=== PATIENT | male | born 1960 | race Caucasian/White ===

== ENCOUNTER 2023-05-13 11:29 | Outpatient (OUT) | payer MEDICARE, SELFPAY ==
[2023-05-13 13:32] LABS: Estimated Average Glucose 151 mg/dL; Glycohemoglobin A1C 6.9 % (4.5-6.2)
== END 2023-05-13 11:30 | disposition home or self-care (01) ==
LOC: LAB 11:33
PROVIDERS: Visit Provider Nurse Practitioner Family
DX: M25.561 Pain in right knee (principal)
CPT/HCPCS: 36415; 83036

== ENCOUNTER 2023-07-07 09:40 | Emergency (ER) | payer MEDICARE, SELFPAY ==
[2023-07-07 09:46] VITALS: BP 179/94; PULSE 88; TEMP 36.8; O2SAT 97; BMI 29.5
--- OUTSIDE RECORDS SUMMARY | 2023-07-07 10:00 | XMS_ITS | CCD ---
Author Organization [facility] Care Team Providers Care Agriculture Laboratory Technician Name Role Phone RICKY RANGEL Unavailable Unavailable RANGEL, RICKY W Unavailable Unavailable Unlisted, Physician Unavailable Unavailable Genet Cramer Unavailable Unavailable Unlisted, Physician Unavailable Unavailable RANGEL, RICKY W Unavailable Unavailable Unlisted, Physician Unavailable Unavailable SUMIT, BECCA Unavailable Unavailable SUMIT, BECCA Unavailable Unavailable SUMIT, BECCA Unavailable Unavailable SUMIT, BECCA Unavailable Unavailable SUMIT, BECCA Unavailable Unavailable SUMIT, BECCA Unavailable Unavailable Radha Montgomery Primary Care Provider Radha Montgomery Primary Care Provider Might SLEEVE SEPARATOR - Radha JAMISON Primary Care Provider JILLIAN RUSSELL Attending Unavailable JILLIAN RUSSELL Admitting Unavailable Might SLEEVE SEPARATOR - Radha JAMISON Primary Care Provider ARDHA MONTGOMERY Referring Unavailable RADHA MONTGOMERY Primary Care Unavailable Might Radha BIRCH Unavailable JILLIAN RUSSELL Attending Unavailable JILLIAN RUSSELL Referring Unavailable DONY CROW Attending Unavailable Allergies Allergy Classification Reported Allergen(s) Allergy Type Date of Onset Reaction(s) Facility (1 source) No Known Medication Allergies; Translations: [No Known Medication Allergies] Propensity to adverse reactions to drug (disorder) [facility] Repository Medications Current Medications Medication Drug Class(es) Dates Sig (Normalized) Sig (Original) amLODIPine 10 mg / benazepril hydrochloride 40 mg oral capsule (8 sources) Dihydropyridine Calcium Channel Belia, Angiotensin Converting Enzyme Inhibitor Start: 04-18-2023 take 1 capsule by mouth in the morning amLODIPine-benaz epril (Lotrel) 10-40 MG capsule Take 1 capsule by mouth in the morning. 0 04/18/2023 Active Start: 04-24-2021 take 1 capsule by mo uth once daily amLODIPine-benazepril (LOTREL) 10-40 MG per capsule Indications: Essential hypertension Take 1 capsule by mouth daily 90 capsule 3 04/24/2021 Active Start: 10-16-2020 take 1 capsule by mo uth once daily amLODIPine-benazepril (LOTREL) 10-40 MG per capsule Indications: Essential hypertension Take 1 capsule by mouth daily 90 capsule 1 10/16/2020 Active Start: 10-27-2019 take 1 capsule by mo uth once daily amLODIPine-benazepril (LOTREL) 10-40 MG per capsule Indications: Essential hypertension Take 1 capsule by mouth daily 90 capsule 1 10/27/2019 Active Start: 04-20-2019 take 1 capsule by mo uth once daily amLODIPine-benazepril (LOTREL) 10-40 MG per capsule Indications: Essential hypertension Take 1 capsule by mouth daily 90 capsule 1 04/20/2019 Active Start: 10-15-2018 take 1 capsule by mo uth once daily amLODIPine-benazepril (LOTREL) 10-40 MG per capsule Indications: Essential hypertension Take 1 capsule by mouth daily 90 capsule 1 10/15/2018 Active aspirin 81 mg oral tablet (6 sources) Platelet Aggregation Inhibitor, Nonsteroidal Anti-inflammatory Drug take 1 tablet by mouth once daily aspirin 81 MG tablet Take 81 mg by mouth daily 0 Active atenolol 100 mg oral tablet (6 sources) beta-Adrenergic Belia Start: 04-24-19 take 1 tablet by mouth once daily atenolol (TENORMIN) 100 MG tablet Indications: Essential hypertension TAKE 1 TABLET BY MOUTH DAILY 90 tablet 3 04/24/2021 Active Start: 10-16-2020 take 1 tablet by zi th once daily atenolol (TENORMIN) 100 MG tablet Indications: Essential hypertension TAKE 1 TABLET BY MOUTH DAILY 90 tablet 1 10/16/2020 Active Start: 10-27-2019 take 1 tablet by zi th once daily atenolol (TENORMIN) 100 MG tablet Indications: Essential hypertension TAKE 1 TABLET BY MOUTH DAILY 90 tablet 1 10/27/2019 Active Start: 04-20-2019 take 1 tablet by zi th once daily atenolol (TENORMIN) 100 MG tablet Indications: Essential hypertension TAKE 1 TABLET BY MOUTH DAILY 90 tablet 1 04/20/2019 Active Start: 10-12-2018 take 1 tablet by zi th once daily atenolol (TENORMIN) 100 MG tablet Indications: Essential hypertension TAKE 1 TABLET BY MOUTH DAILY 90 tablet 1 10/12/2018 Active budesonide 0.032 mg/actuat metered dose nasal spray (1 source) Corticosteroid Start: 03-27-2020 take 1 spray(s) nasal route once daily budesonide (RINOCORT AQUA) 32 MCG/ACT nasal spray Indications: Chronic allergic rhinitis 1 spray by Each Nostril route daily 1 Bottle 5 03/27/2020 Active calcium chloride 0.0014 meq/ml / potassium chloride 0.004 meq/ml / sodium chloride 0.103 meq/ml / sodium lactate 0.028 meq/ml injectable solution (3 sources) Start: 04-03-2021 lactated ringers infusion dapagliflozin 5 mg oral tablet (4 sources) Sodium-Glucose Cotransporter 2 Inhibitor Start: 03-27-2020 take 1 tablet by mouth once daily in the morning dapagliflozin (FARXIGA) 5 MG tablet Indications: Type 2 diabetes mellitus with complication, without long-term current use of insulin (HCC) TAKE 1 TABLET BY MOUTH EVERY DAY IN THE MORNING 90 tablet 3 03/27/2020 Active Start: 04-12-2019 take 1 tablet by zi th once daily in the morning dapagliflozin (FARXIGA) 5 MG tablet Indications: Type 2 diabetes mellitus with complication, without long-term current use of insulin (HCC) TAKE 1 TABLET BY MOUTH EVERY DAY IN THE MORNING 90 tablet 3 04/12/2019 Active Start: 10-15-2018 take 1 tablet by zi th once daily in the morning dapagliflozin (FARXIGA) 5 MG tablet Indications: Type 2 diabetes mellitus with complication, without long-term current use of insulin (HCC) TAKE 1 TABLET BY MOUTH EVERY DAY IN THE MORNING 90 tablet 1 10/15/2018 Active glipiZIDE 10 mg oral tablet (8 sources) Sulfonylurea Start: 03-04-2023 take 1 tablet by mouth in the morning glipiZIDE (Glucotrol) 10 MG tablet Take 1 tablet by mouth in the morning and 1 tablet before bedtime. 0 03/04/2023 Active Start: 10-31-2020 take 1 tablet by zi th twice daily glipiZIDE (GLUCOTROL) 10 MG tablet Indications: Type 2 diabetes mellitus with complication, without long-term current use of insulin (HCC) Take 1 tablet by mouth 2 times daily 180 tablet 3 10/31/2020 Active Start: 03-27-2020 take 1 tablet by zi th twice daily glipiZIDE (GLUCOTROL) 10 MG tablet Indications: Type 2 diabetes mellitus with complication, without long-term current use of insulin (HCC) Take 1 tablet by mouth 2 times daily 180 tablet 1 03/27/2020 Active Start: 09-28-2019 take 1 tablet by zi th twice daily glipiZIDE (GLUCOTROL) 10 MG tablet Indications: Type 2 diabetes mellitus with complication, without long-term current use of insulin (HCC) Take 1 tablet by mouth 2 times daily 180 tablet 1 09/28/2019 Active Start: 04-20-2019 take 1 tablet by zi th twice daily glipiZIDE (GLUCOTROL) 10 MG tablet Indications: Type 2 diabetes mellitus with complication, without long-term current use of insulin (HCC) Take 1 tablet by mouth 2 times daily 180 tablet 1 04/20/2019 Active Start: 10-15-2018 take 1 tablet by zi th twice daily glipiZIDE (GLUCOTROL) 10 MG tablet Indications: Type 2 diabetes mellitus with complication, without long-term current use of insulin (HCC) Take 1 tablet by mouth 2 times daily 180 tablet 1 10/15/2018 Active glucose monitoring kit (FREESTYLE) monitoring kit (6 sources) Start: 03-04-2016 glucose monito ring kit (FREESTYLE) monitoring kit Indications: Type 2 diabetes mellitus without complication, without long-term current use of insulin ([facility]) Use daily as directed (whichever meter is covered by pt's insurance) 1 kit 0 03/04/2016 Active 3 ml insulin aspart protamine, human 70 unt/ml / insulin aspart, human 30 unt/ml pen injector (1 source) Insulin Analog Start: 01-31-2021 insulin aspart protamine-insulin aspart (NOVOLOG 70/30) (70-30) 100 UNIT/ML injection Indications: Type 2 diabetes mellitus with complication, without long-term current use of insulin ([facility]) Inject 15 Units into the skin 2 times daily (with meals) 5 pen 3 01/31/2021 Active isopropyl alcohol 0.7 ml/ml medicated pad (4 sources) Start: 03-04-2016 Alcohol Swabs (ALCOHOL PREP) 70 % PADS Indications: Type 2 diabetes mellitus without complication, without long-term current use of insulin (HCC) Use daily as directed 100 each 3 03/04/2016 Active lovastatin 40 mg oral tablet (8 sources) HMG-CoA Reductase Inhibitor Start: 09-20-2022 take 1 tablet by mouth at bedtime lovastatin (Mevacor) 40 MG tablet Take 40 mg by mouth at bedtime 0 09/20/2022 Active Start: 08-13-2021 take 1 tablet by zi th once daily lovastatin (MEVACOR) 40 MG tablet Indications: Dyslipidemia Take 1 tablet by mouth nightly 90 tablet 3 08/13/2021 Active Start: 06-15-2020 take 1 tablet by zi th once daily lovastatin (MEVACOR) 40 MG tablet Indications: Dyslipidemia Take 1 tablet by mouth nightly 90 tablet 3 06/15/2020 Active Start: 11-15-2019 take 1 tablet by zi th once daily in the evening lovastatin (MEVACOR) 40 MG tablet Indications: Dyslipidemia TAKE 1 TABLET BY MOUTH EVERY EVENING 90 tablet 1 11/15/2019 Active Start: 04-20-2019 take 1 tablet by zi th once daily in the evening lovastatin (MEVACOR) 40 MG tablet Indications: Dyslipidemia TAKE 1 TABLET BY MOUTH EVERY EVENING 90 tablet 1 04/20/2019 Active Start: 10-15-2018 take 1 tablet by zi th once daily in the evening lovastatin (MEVACOR) 40 MG tablet Indications: Dyslipidemia TAKE 1 TABLET BY MOUTH EVERY EVENING 90 tablet 1 10/15/2018 Active meloxicam 15 mg oral tablet (8 sources) Nonsteroidal Anti-inflammatory Drug Start: 10-31-2020 take 1 tablet by mouth once daily meloxicam (MOBIC) 15 MG tablet TAKE 1 TABLET BY MOUTH EVERY DAY 90 tablet 3 10/31/2020 Active Start: 07-17-2020 take 1 tablet by zi th once daily meloxicam (MOBIC) 15 MG tablet TAKE 1 TABLET BY MOUTH EVERY DAY 90 tablet 1 07/17/2020 Active Start: 01-12-2020 take 1 tablet by zi th once daily meloxicam (MOBIC) 15 MG tablet TAKE 1 TABLET BY MOUTH EVERY DAY 90 tablet 1 01/12/2020 Active Start: 07-15-2018 take 1 tablet by zi th once daily meloxicam (MOBIC) 15 MG tablet TAKE 1 TABLET BY MOUTH EVERY DAY 90 tablet 1 07/19/2019 Active metFORMIN hydrochloride 1000 mg oral tablet (8 sources) Biguanide Start: 10-31-2020 take 1 tablet by mouth twice daily at mealtime metFORMIN (GLUCOPHAGE) 1000 MG tablet Indications: Type 2 diabetes mellitus with complication, without long-term current use of insulin (HCC) TAKE 1 TABLET BY MOUTH TWICE DAILY WITH MEALS 180 tablet 3 10/31/2020 Active Start: 05-30-2020 take 1 tablet by zi th twice daily at mealtime metFORMIN (GLUCOPHAGE) 1000 MG tablet Indications: Type 2 diabetes mellitus with complication, without long-term current use of insulin (HCC) TAKE 1 TABLET BY MOUTH TWICE DAILY WITH MEALS 180 tablet 1 05/30/2020 Active Start: 11-15-2019 take 1 tablet by zi th twice daily at mealtime metFORMIN (GLUCOPHAGE) 1000 MG tablet Indications: Type 2 diabetes mellitus with complication, without long-term current use of insulin (HCC) TAKE 1 TABLET BY MOUTH TWICE DAILY WITH MEALS 180 tablet 1 11/15/2019 Active Start: 10-15-2018 take 1 tablet by zi th twice daily at mealtime metFORMIN (GLUCOPHAGE) 1000 MG tablet Indications: Type 2 diabetes mellitus with complication, without long-term current use of insulin (HCC) TAKE 1 TABLET BY MOUTH TWICE DAILY WITH MEALS 180 tablet 1 04/20/2019 Active montelukast 10 mg oral tablet (3 sources) Leukotriene Receptor Antagonist Start: 05-15-2021 take 1 tablet by mouth once daily montelukast (SINGULAIR) 10 MG tablet Indications: Chronic allergic rhinitis TAKE 1 TABLET BY MOUTH DAILY 90 tablet 3 05/15/2021 Active Start: 03-27-2020 take 1 tablet by zi th once daily montelukast (SINGULAIR) 10 MG tablet Indications: Chronic allergic rhinitis Take 1 tablet by mouth daily 90 tablet 3 03/27/2020 Active omeprazole 40 mg delayed release oral capsule (7 sources) Proton Pump Inhibitor Start: 08-13-2021 take 1 capsule by mouth once daily before breakfast omeprazole (PRILOSEC) 40 MG delayed release capsule Indications: Gastroesophageal reflux disease without esophagitis Take 1 (ONE) capsule by mouth every morning (before breakfast) 90 capsule 3 08/13/2021 Active Start: 02-05-2021 take 1 capsule by mo uth once daily before breakfast omeprazole (PRILOSEC) 40 MG delayed release capsule Indications: Gastroesophageal reflux disease without esophagitis Take 1 (ONE) capsule by mouth every morning (before breakfast) 90 capsule 1 02/05/2021 Active Start: 08-03-2019 take 1 capsule by mo uth once daily before breakfast omeprazole (PRILOSEC) 40 MG delayed release capsule Indications: Gastroesophageal reflux disease without esophagitis Take 1 (ONE) capsule by mouth every morning (before breakfast) 90 capsule 1 08/17/2020 Active penicillin v potassium 500 mg oral tablet (1 source) Start: 09-16-2019 End: 09-26-2019 take 1 tablet by mouth four times daily penicillin v potassium (VEETID) 500 MG tablet Indications: Dental infection Take 1 tablet by mouth 4 times daily for 10 days 40 tablet 0 09/16/2019 09/26/2019 Active pioglitazone 30 mg oral tablet (2 sources) Peroxisome Proliferator Receptor alpha Agonist, Peroxisome Proliferator Receptor gamma Agonist, Thiazolidinedione take 1 tablet by mouth in the morning pioglitazone (Actos) 30 MG tablet Take 30 mg by mouth in the morning. 0 Active promethazine hydrochloride 25 mg oral tablet (1 source) Phenothiazine Start: 01-13-2020 End: 01-20-2020 take 1 tablet by mouth three times daily as needed for nausea promethazine (PHENERGAN) 25 MG tablet Indications: Viral gastroenteritis Take 1 tablet by mouth 3 times daily as needed for Nausea 12 tablet 0 01/13/2020 01/20/2020 Active raNITIdine 150 mg oral tablet (1 source) Histamine-2 Receptor Antagonist Start: 10-12-2018 take 1 tablet by mouth twice daily ranitidine (ZANTAC) 150 MG tablet Indications: Gastroesophageal reflux disease without esophagitis TAKE 1 TABLET BY MOUTH TWICE DAILY 180 tablet 1 10/12/2018 Active SITagliptin 100 mg oral tablet (4 sources) Dipeptidyl Peptidase 4 Inhibitor Start: 10-05-2020 take 1 tablet by mouth once daily SITagliptin (JANUVIA) 100 MG tablet Indications: Type 2 diabetes mellitus with complication, without long-term current use of insulin (HCC) TAKE 1 TABLET BY MOUTH DAILY 90 tablet 1 10/05/2020 Active Start: 11-01-2019 take 1 tablet by zi th once daily SITagliptin (JANUVIA) 100 MG tablet Indications: Type 2 diabetes mellitus with complication, without long-term current use of insulin ([facility]) TAKE 1 TABLET BY MOUTH DAILY 90 tablet 1 11/01/2019 Active Start: 05-04-2019 take 1 tablet by zi th once daily SITagliptin (JANUVIA) 100 MG tablet Indications: Type 2 diabetes mellitus with complication, without long-term current use of insulin ([facility]) TAKE 1 TABLET BY MOUTH DAILY 90 tablet 1 05/04/2019 Active Start: 10-15-2018 take 1 tablet by zi th once daily SITagliptin (JANUVIA) 100 MG tablet Indications: Type 2 diabetes mellitus with complication, without long-term current use of insulin ([facility]) TAKE 1 TABLET BY MOUTH DAILY 90 tablet 1 10/15/2018 Active 5 ml sodium chloride 9 mg/ml injection (6 sources) Start: 04-03-2021 0.9 % sodium c hloride infusion Start: 04-03-2021 sodium chlorid e flush 0.9 % injection 5-40 mL sucralfate 1000 mg oral tablet (1 source) Aluminum Complex Start: 04-03-2021 take 1 tablet by mouth four times daily sucralfate (CARAFATE) 1 GM tablet Take 1 tablet by mouth 4 times daily Taken as a slurry. Instruct patient how to create slurry from tablets at home. 120 tablet 3 04/03/2021 Active Problems Active Problems Problem Classification Problem Date Documented Date Episodic/Chronic Cataract (5 sources) Hypermature cataract; Translations: [Age-related cataract, morgagnian type, unspecified eye] Onset: 06-13-2011 01-14-2019 Chronic Diabetes mellitus with complications (5 sources) Type 2 diabetes mellitus; Translations: [Type 2 diabetes mellitus with unspecified complications] Onset: 01-19-2018 Chronic Diabetes mellitus without complication (9 sources) Type 2 diabetes mellitus without complications; Translations: [Type 2 diabetes mellitus] Onset: 07-15-2017 01-19-2018 Chronic Disorders of lipid metabolism (7 sources) Dyslipidemia; Translations: [Hyperlipidemia, unspecified] Onset: 2018 2018 Chronic Esophageal disorders (6 sources) Gastroesophageal reflux disease without esophagitis; Translations: [Gastro-esophageal reflux disease without esophagitis] Onset: 2018 2018 Chronic Essential hypertension (7 sources) Essential (primary) hypertension; Translations: [Essential hypertension] Onset: 07-15-2017 2018 Chronic Intestinal infection (1 source) Viral gastroenteritis; Translations: [Viral gastroenteritis] Episodic Osteoarthritis (6 sources) Unilateral primary osteoarthritis, right knee; Translations: [Arthritis of right knee] Onset: 01-16-2021 Chronic Other aftercare (3 sources) termite helper (current) use of insulin; Translations: [snf (current) use of insulin] Onset: 07-15-2017 Episodic Other connective tissue disease (1 source) Pain in right lower leg; Translations: [Pain in right lower leg] Onset: 07-15-2017 Episodic Other non-traumatic joint disorders (6 sources) Effusion, right knee; Translations: [Pain in right knee] Onset: 07-15-2017 Episodic Other non-traumatic joint disorders (2 sources) Pain in right knee; Translations: [Pain in joint, lower leg] 05-11-2023 Episodic Other screening for suspected conditions (not mental disorders or infectious disease) (4 sources) Patient encounter status; Translations: [Encounter for screening for malignant neoplasm of colon] Onset: 02-01-2015 Resolved: 12-25-2017 12-25-2017 Episodic Past or Other Problems Problem Classification Problem Date Documented Da te Episodic/Chronic Other gastrointestinal disorders (3 sources) Occult blood in stools; Translations: [Other fecal abnormalities] Onset: 04-03-2021 Episodic Unclassified (3 sources) Patient encounter status; Translations: [Colon cancer screening] Onset: 02-01-2015 Resolved: 12-25-2017 12-25-2017 Results Test Name Value Interpretation Reference Range Facility XR Knee - right 1 or 2 Views on 05-12-2023 Imaging Result: May 12, 2023 x-rays AP weight-bearing bilateral knees and lateral of the Right knee demonstrate [id number] in the medial compartment of the left knee with subchondral sclerosis marginal osteophytes and varus alignment. No fractures noted. Impression: Advanced osteoarthritis right knee [place] Crow D.O. [facility] Radiology Study observation (narrative) [facility] XR Knee - right 1 or 2 Views Ordered By: Dony Crow on 05-12-2023 [facility] Work Phone: Hemoglobin A1Con 08-10-2023 Glucose [Mass/Vol] 137 mg/dL Normal [facility] [place] Comment on above: Result Comment: The ADA and AACC recommend providing the estimated average glucose result to permit better patient understanding of their HBA1c result. Performed By: #### A , BMP, AST, CDP #### [facility] [address] [place], [place] [id number] E Commerce Manager: Mark Ramirez MD #### MCKENZIE, PSAS #### [address] [address] E Commerce Manager: Randolph Cabrera MD HbA1c (Bld) [Mass fraction] 6.4 % High 4.0-6.0 [facility] Comment on above: Performed By: #### A , KOBE, AST, CDP #### [facility] [address] [place], [place] [id number] E Commerce Manager: Mark Ramirez MD #### MCKENZIE, PSAS #### [address] [address] E Commerce Manager: Randolph Cabrera MD Lipid Profileon 11-07-2022 Cholesterol [Mass/Vol] 158 mg/dL Normal <200 [facility] Comment on above: Result Comment: Cholesterol Guidelines: <200 Desirable 200-240 Borderline >240 Undesirable Performed By: #### L IPR #### [address] [address] E Commerce Manager: Randolph Cabrera MD Cholesterol in HDL [Mass/Vol] 44 mg/dL Normal >40 [facility] Comment on above: Result Comment: HDL Guidelines: <40 Undesirable 40-59 Borderline >59 Desirable Performed By: #### L IPR #### [address] [address] E Commerce Manager: Randolph Cabrera MD Cholesterol in LDL [Mass/Vol] 93 mg/dL Normal 0-130 [facility] Comment on above: Result Comment: LDL Guidelines: <100 Desirable 100-129 Near to/above Desirable 130-159 Borderline >159 Undesirable Direct (measured) LDL and calculated LDL are not interchangeable tests. Performed By: #### L IPR #### [address] [address] E Commerce Manager: Randolph Cabrera MD Cholesterol.total/Chol esterol in HDL [Mass ratio] 3.6 {ratio} Normal <5 [facility] Comment on above: Performed By: #### L IPR #### [address] [address] E Commerce Manager: Randolph Cabrera MD Triglyceride [Mass/Vol] 105 mg/dL Normal <150 [facility] Comment on above: Result Comment: Triglyceride Guidelines: <150 Desirable 150-199 Borderline 200-499 High >499 Very high Based on AHA Guidelines for fasting triglyceride, December 2011. Performed By: #### L IPR #### [address] [address] E Commerce Manager: Randolph Cabrera MD Microalb.,Random Uron 2022 Creatinine [Mass/Vol] 21.7 mg/dL Low 39.0-259.0 [facility] Comment on above: Performed By: #### U RNMAB #### [address] [address] E Commerce Manager: Randolph Cabrera MD Microalb/Creat Ratio 83 mcg/mg creat High <17 [facility] Comment on above: Performed By: #### U RNMAB #### [address] [address] E Commerce Manager: Randolph Cabrera MD Microalbumin conc. 18 mg/L Normal <21 [facility] Comment on above: Performed By: #### U RNMAB #### [address] [address] E Commerce Manager: Randolph Cabrera MD PSA, Screeningon 11-07-2022 Prostatic Spec. Ag 1.06 ng/mL Normal <4.1 [facility] Comment on above: Result Comment: The Kim ECLIA assay is used. Results obtained with different assay methods cannot be used interchangeably. Performed By: #### A LT, BMP, AST, CDP #### [facility] [address] [place], [place] [id number] E Commerce Manager: Mark Ramirez MD #### GLYHGB, PSAS #### [address] [address] E Commerce Manager: Randolph Cabrera MD [place] 11-06-2022 ALT [Catalytic activity/Vol] 26 U/L Normal 5-41 [facility] [place] Comment on above: Performed By: #### A LT, BMP, AST, CDP #### [address] [place], [place] [id number] E Commerce Manager: Mark Ramirez MD #### JAYDEHGB, PSAS #### [address] [address] E Commerce Manager: Randolph Cabrera MD [place] 11-06-2022 AST [Catalytic activity/Vol] 26 U/L Normal <40 [facility] Comment on above: Performed By: #### A LT, BMP, AST, CDP #### [address] [place], [place] [id number] E Commerce Manager: Mark Ramirez MD #### GLYABRAHAN, PSAS #### [address] [address] E Commerce Manager: Randolph Cabrera MD Basic Metabolic Profon 11-06 Anion gap [Moles/Vol] 14 mmol/L Normal 9-17 [facility] Comment on above: Performed By: #### A LT, BMP, AST, CDP #### [facility] [address] [place], [place] [id number] E Commerce Manager: Mark Ramirez MD #### GLYHGB, PSAS #### [address] [address] E Commerce Manager: Randolph Cabrera MD BUN/CRE Ratio 21 High 9-20 [facility] Comment on above: Performed By: #### A LT, BMP, AST, CDP #### [facility] [address] [place] [address] Dr. [place], [place] [id number] E Commerce Manager: Mark Ramirez MD #### MCKENZIE, PSAS #### [address] [id number] E Commerce Manager: Randolph Cabrera MD Calcium [Mass/Vol] 10.1 mg/dL Normal 8.6-10.4 [facility] [place] Comment on above: Performed By: #### A LT, BMP, AST, CDP #### [address] [place] [id number] E Commerce Manager: Mark Ramirez MD #### MCKENZIE, PSAS #### [address] [address] E Commerce Manager: Randolph Cabrera MD Chloride [Moles/Vol] 101 mmol/L Normal 98-107 [facility] Comment on above: Performed By: #### A LT, BMP, AST, CDP #### [address] [place] [id number] E Commerce Manager: Mark Ramirez MD #### MCKENZIE, PSAS #### [address] [address] E Commerce Manager: Randolph Cabrera MD CO2 [Moles/Vol] 23 mmol/L Normal 20-31 [facility] Comment on above: Performed By: #### A LT, BMP, AST, CDP #### [address] [place], [place] [id number] E Commerce Manager: Mark Ramirez MD #### MCKENZIE, PSAS #### [address] [address] E Commerce Manager: Randolph Cabrera MD Creatinine [Mass/Vol] 0.9 mg/dL Normal 0.7-1.2 [facility] Comment on above: Performed By: #### A LT BMP, AST, CDP #### [facility] [address] [place] [address] Dr. [place], [place] [id number] E Commerce Manager: Mark Ramirez MD #### MCKENZIE, PSAS #### [address] [id number] E Commerce Manager: Randolph Cabrera MD GFR/1.73 sq M.predicted among non-blacks MDRD (S/P/Bld) [Vol rate/Area] mL/min/{1.73_m2} Normal >60 [facility] Comment on above: Result Comment: These results are not intended for use in patients <18 years of age. eGFR results are calculated without a race factor using the 2020 CKD-EPI equation. Careful clinical correlation is recommended, particularly when comparing to results calculated using previous equations. The CKD-EPI equation is less accurate in patients with extremes of muscle mass, extra-renal metabolism of creatine, excessive creatine ingestion, or following therapy that affects renal tubular secretion. Performed By: #### A LT BMP, AST, CDP #### [address] [place], [place] [id number] E Commerce Manager: Mark Ramirez MD #### MCKENZIE, PSAS #### [address] [id number] E Commerce Manager: Randolph Cabrera MD Glucose [Mass/Vol] 84 mg/dL Normal 70-99 [facility] Comment on above: Performed By: #### A LT BMP, AST, CDP #### [address] [place] [address] E Commerce Manager: Mark Ramirez MD #### MCKENZIE, PSAS #### [address] [id number] E Commerce Manager: Randolph Cabrera MD Potassium [Moles/Vol] 4.3 mmol/L Normal 3.7-5.3 [facility] Comment on above: Performed By: #### A LT, BMP, AST, CDP #### [facility] [address] [place], [place] [id number] E Commerce Manager: Mark Ramirez MD #### GLYHGB, PSAS #### [address] [id number] E Commerce Manager: Randolph Cabrera MD Sodium [Moles/Vol] 138 mmol/L Normal 135-144 [facility] [place] Comment on above: Performed By: #### A LT, BMP, AST, CDP #### [facility] [address] [place] [address] [place] [address] E Commerce Manager: Mark Ramirez MD #### MCKENZIE, PSAS #### [address] [id number] E Commerce Manager: Randolph Cabrera MD Urea nitrogen [Mass/Vol] 19 mg/dL Normal 8-23 [facility] [place] Comment on above: Performed By: #### A LT, BMP, AST, CDP #### [facility] [address] [place] [address] [place] [address] E Commerce Manager: Mark Ramirez MD #### MCKENZIE, PSAS #### [address] [id number] E Commerce Manager: Randolph Cabrera MD CBC with Diffon 11-06-2022 Abs. Basophil 0.05 k/uL Normal 0.00-0.20 [facility] Comment on above: Performed By: #### A LT, BMP, AST, CDP #### [facility] [address] [place] [address] [place] [address] E Commerce Manager: Mrak Ramirez MD #### JAYDEHGB, PSAS #### [address] [id number] E Commerce Manager: Randolph Cabrera MD Abs.Imm.Granulocyte <0.03 Normal 0.00-0.30 [facility] Comment on above: Performed By: #### A LT, BMP, AST, CDP #### [facility] [address] [place] [address] [place] [id number] E Commerce Manager: Mark Ramirez MD #### MCKENZIE, PSAS #### [address] [id number] E Commerce Manager: Randolph Cabrera MD Abs.Neutrophil (Seg) 5.84 k/uL Normal 1.50-8.10 [facility] Comment on above: Performed By: #### A LT, BMP, AST, CDP #### [address] [place] [id number] E Commerce Manager: Mark Ramirez MD #### MCKENZIE, PSAS #### [place] [id number] E Commerce Manager: Randolph Cabrera MD Basophils/100 WBC (Bld) 1 % Normal 0-2 [facility] Comment on above: Performed By: #### A LT, BMP, AST, CDP #### [facility] [address] [place] [address] [place] [id number] E Commerce Manager: Mark Ramirez MD #### MCKENZIE, PSAS #### [place] [address] E Commerce Manager: Randolph Cabrera MD Eosinophils (Bld) [#/Vol] 0.48 10*3/uL High 0.00-0.44 [facility] Comment on above: Performed By: #### A LT, BMP, AST, CDP #### [facility] [address] [place] [address] [place] [id number] E Commerce Manager: Mark Ramirez MD #### MCKENZIE, PSAS #### [address] [address] E Commerce Manager: Randolph Cabrera MD Eosinophils/100 WBC (Bld) 5 % High 1-4 [facility] Comment on above: Performed By: #### A LT, BMP, AST, CDP #### [facility] [address] [place] [address] Dr. [place] [id number] E Commerce Manager: Mark Ramirez MD #### GLYHGB, PSAS #### [address] [address] E Commerce Manager: Randolph Cabrera MD Erythrocyte distribution width (RBC) [Ratio] 11.5 % Low 11.8-14.4 [facility] Comment on above: Performed By: #### A LT, BMP, AST, CDP #### [address] [place] [id number] E Commerce Manager: Mark Ramirez MD #### MCKENZIE, PSAS #### [address] [address] E Commerce Manager: Randolph Cabrera MD Hematocrit (Bld) [Volume fraction] 39.8 % Low 40.7-50.3 [facility] [place] Comment on above: Performed By: #### A LT, BMP, AST, CDP #### [address] [place] [id number] E Commerce Manager: Mark Ramirez MD #### GLYHGB, PSAS #### [address] [id number] E Commerce Manager: Randolph Cabrera MD Hemoglobin (Bld) [Mass/Vol] 14.0 g/dL Normal 13.0-17.0 [facility] [place] Comment on above: Performed By: #### A LT, BMP, AST, CDP #### [address] [place] [id number] E Commerce Manager: Mark Ramirez MD #### GLYHGB, PSAS #### [place] [id number] [place] [address] E Commerce Manager: Randoplh Cabrera MD Immature granulocytes/100 WBC (Bld) 0 % Normal 0 [facility] Comment on above: Performed By: #### A LT, BMP, AST, CDP #### [address] [place] [address] E Commerce Manager: Mark Ramirez MD #### GLYHGB, PSAS #### [place] [address] E Commerce Manager: Randolph Cabrera MD Lymphocytes (Bld) [#/Vol] 2.44 10*3/uL Normal 1.10-3.70 [facility] Comment on above: Performed By: #### A LT, BMP, AST, CDP #### [address] [place] [address] E Commerce Manager: Mark Ramirez MD #### GLYHGB, PSAS #### [place] [address] E Commerce Manager: Randolph Cabrera MD Lymphocytes/100 WBC (Bld) 26 % Normal 24-43 [facility] Comment on above: Performed By: #### A LT, BMP, AST, CDP #### [address] [place] [id number] E Commerce Manager: Mark Ramirez MD #### GLYHGB, PSAS #### [place] [address] E Commerce Manager: Randolph Cabrera MD MCH (RBC) [Entitic mass] 32.2 pg Normal 25.2-33.5 [facility] Comment on above: Performed By: #### A LT, BMP, AST, CDP #### [address] [place] [id number] E Commerce Manager: Mark Ramirez MD #### MCKENZIE, PSAS #### [address] [id number] E Commerce Manager: Randolph Cabrera MD MCHC (RBC) [Mass/Vol] 35.2 g/dL High 28.4-34.8 [facility] Comment on above: Performed By: #### A LT, BMP, AST, CDP #### [address] [place] [id number] E Commerce Manager: Mark Ramirez MD #### MCKENZIE, PSAS #### [place] [id number] E Commerce Manager: Randolph Cabrera MD MCV (RBC) [Entitic vol] 91.5 fL Normal 82.6-102.9 [facility] Comment on above: Performed By: #### A LT, BMP, AST, CDP #### [address] [place] [id number] E Commerce Manager: Mark Ramirez MD #### MCKENZIE, PSAS #### [place] [address] E Commerce Manager: Randolph Cabrera MD Monocytes (Bld) [#/Vol] 0.62 10*3/uL Normal 0.10-1.20 [facility] Comment on above: Performed By: #### A LT, BMP, AST, CDP #### [address] [place] [id number] E Commerce Manager: Mark Ramirez MD #### MCKENZIE, PSAS #### [place] [id number] E Commerce Manager: Randolph Cabrera MD Monocytes/100 WBC (Bld) 7 % Normal 3-12 [facility] Comment on above: Performed By: #### A LT, BMP, AST, CDP #### [address] [place] [address] E Commerce Manager: Mark Ramirez MD #### GLYHGB, PSAS #### [place] [id number] [place] [address] E Commerce Manager: Randolph Cabrera MD Neutrophil (Seg) 61 % Normal 36-65 [facility] Comment on above: Performed By: #### A LT, BMP, AST, CDP #### [address] [place] [address] E Commerce Manager: Mark Ramirez MD #### MCKENZIE, PSAS #### [place] [id number] [place] [address] E Commerce Manager: Randolph Cabrera MD NRBC Automated 0.0 per 100 WBC Normal 0.0 [facility] Comment on above: Performed By: #### A LT, BMP, AST, CDP #### [address] [place] [address] E Commerce Manager: Mark Ramirez MD #### MCKENZIE, PSAS #### [address] [id number] E Commerce Manager: Randolph Cabrera MD Platelet mean volume (Bld) [Entitic vol] 10.0 fL Normal 8.1-13.5 [facility] Comment on above: Performed By: #### A LT, BMP, AST, CDP #### [address] [place] [address] E Commerce Manager: Mark Ramirez MD #### ANGELB, PSAS #### [place] [id number] [place], [place] [id number] E Commerce Manager: Randolph Cabrera MD Platelets (Bld) [#/Vol] 221 10*3/uL Normal 138-453 [facility] Comment on above: Performed By: #### A LT, BMP, AST, CDP #### [address] [place] [address] E Commerce Manager: Mark Ramirez MD #### GLYHGB, PSAS #### [place] 541496 [place], [place] 5000708 E Commerce Manager: Randolph Cabrera MD RBC (Bld) [#/Vol] 4.35 10*6/uL Normal 4.21-5.77 [facility] Comment on above: Performed By: #### A LT, BMP, AST, CDP #### [address] [place] [address] E Commerce Manager: Mark Ramirez MD #### GLYHGB, PSAS #### [place] [address] [place], [place] [id number] E Commerce Manager: Randolph Cabrera MD WBC (Bld) [#/Vol] 9.5 10*3/uL Normal 3.5-11.3 [facility] Comment on above: Performed By: #### A LT, BMP, AST, CDP #### [address] [place] [address] E Commerce Manager: Mark Ramirez MD #### GLYHGB, PSAS #### [place] [id number] [place], [place] [id number] E Commerce Manager: Randolph Cabrera MD Lipid Panelon 11-02-2021 Cholesterol [Mass/Vol] 169 mg/dL NINF - 200 mg/dL [facility] Comment on above: Cholesterol Guidelines: <200 Desirable 200-240 Borderline >240 Undesirable Cholesterol in HDL [Mass/Vol] 43 mg/dL 40 - PINF mg/dL [facility] Comment on above: HDL Guidelines: <40 Undesirable 40-59 Borderline >59 Desirable Cholesterol in LDL [Mass/Vol] 95 mg/dL 0 - 130 mg/dL [facility] Comment on above: LDL Guidelines: <100 Desirable 100-129 Near to/above Desirable 130-159 Borderline >159 Undesirable Direct (measured) LDL and calculated LDL are not interchangeable tests. Cholesterol.total/Chol esterol in HDL [Mass ratio] 3.9 {ratio} NINF - 5 [facility] Interpretation and review of laboratory results Abnormal [facility] Triglyceride [Mass/Vol] 156 mg/dL High NINF - 150 mg/dL [facility] Comment on above: Triglyceride Guidelines: <150 Desirable 150-199 Borderline 200-499 High >499 Very high Based on AHA Guidelines for fasting triglyceride, December 2011. [facility] [employer] Herb 11-01-2021 ALT [Catalytic activity/Vol] 44 U/L High 5 - 41 U/L [facility] Shantelle 11-01-2021 AST [Catalytic activity/Vol] 33 U/L NINF - 40 U/L [facility] [employer] Basic Metabolic Panelon Anion gap [Moles/Vol] 16 mmol/L 9 - 17 mmol/L [facility] [employer] Calcium [Mass/Vol] 10.0 mg/dL 8.6 - 10. 4 mg/dL [facility] [employer] Chloride [Moles/Vol] 96 mmol/L Low 98 - 10 7 mmol/L [facility] [employer] CO2 [Moles/Vol] 23 mmol/L 20 - 31 mmol/L [facility] Creatinine [Mass/Vol] 0.81 mg/dL 0.7 - 1.2 mg/dL [facility] GFR >60 60 - PI NF mL/min [facility] GFR Non- >60 60 - PINF mL/min [facility] Glucose [Mass/Vol] 112 mg/dL High 70 - 99 mg/dL [facility] [employer] Potassium [Moles/Vol] 3.9 mmol/L 3.7 - 5.3 mmol/L [facility] Sodium [Moles/Vol] 135 mmol/L 135 - 144 mmol/L [facility] [employer] Urea nitrogen (BldV) [Mass/Vol] 14 mg/dL 8 - 23 mg/dL [facility] [employer] Urea nitrogen/Creatinine (Bld) [Mass ratio] 17 9 - 20 [facility] [employer] CBC Auto Differentialon Absolute Eos # 0.30 [facility] Absolute Immature Granulocyte 0.04 [facility] Absolute Lymph # 2.88 [facility] Absolute [place] # 0.71 [facility] Basophils (Bld) [#/Vol] 0.06 10*3/uL [facility] Basophils/100 WBC (Bld) 1 % 0 - 2 % [facility] Eosinophils/100 WBC (Bld) 3 % 1 - 4 % [facility] Hematocrit (Bld) [Volume fraction] 42.4 % 40.7 - 50.3 % [facility] Hemoglobin (Bld) [Mass/Vol] 14.7 g/dL 13 - 17 g/dL [facility] Immature granulocytes/100 WBC (Bld) 0 % 0 [facility] Interpretation and review of laboratory results Abnormal [facility] Lymphocytes/100 WBC (Bld) 32 % 24 - 43 % [facility] MCH (RBC) [Entitic mass] 31.6 pg 25.2 - 33.5 pg [facility] MCHC (RBC) [Mass/Vol] 34.7 g/dL 28.4 - 34.8 g/dL [facility] MCV (RBC) [Entitic vol] 91.2 fL 82.6 - 102.9 fL [facility] Monocytes/100 WBC (Bld) 8 % 3 - 12 % [facility] NRBC Automated 0.0 0.0 per 100 WBC [facility] Platelet distribution width (Bld) [Ratio] 11.3 % Low 11.8 - 14.4 % [facility] Platelet mean volume (Bld) [Entitic vol] 10.2 fL 8.1 - 13.5 fL [facility] Platelets (Bld) [#/Vol] 203 10*3/uL [facility] RBC (Bld) [#/Vol] 4.65 10*6/uL 4.21 - 5.7 7 m/uL [facility] Segmented neutrophils/100 WBC (Bld) 56 % 36 - 65 % [facility] Segs Absolute 4.95 [facility] WBC (Bld) [#/Vol] 8.9 10*3/uL [facility] Laboratory - Chemistry and C hemistry - challengeon 11-01-2021 GFR/1.73 sq M.predicted MDRD (S/P/Bld) [Vol rate/Area] [facility] Comment on above: Average GFR for 60-6 9 years old: 85 mL/min/1.73sq m Chronic Kidney Disease: <60 mL/min/1.73sq m Kidney failure: <15 mL/min/1.73sq m eGFR calculated using average adult body mass. Additional eGFR calculator available at: http://www.Fliptu/multiple_crcl_2012.htm Stage 1: Some kidney damage normal GFR Stage 2: Mild kidney damage GFR 60-89 Stage 3: Moderate kidney damage GFR 30-59 Stage 4: Severe kidney damage GFR 15-29 Stage 5: Severe kidney damage GFR <15 ESRD - chronic treatment by dialysis or transplant Microalbumin, Uron 2 Albumin/Creatinine DL <= 20 mg/L (24H U) [Mass ratio] 56 mg/L High NINF - 21 mg/L [facility] Albumin/Creatinine DL <= 20 mg/L (U) [Ratio] 255 High NINF [facility] Creatinine [Mass/Vol] 22.0 mg/dL Low 39 - 2 59 mg/dL [facility] Interpretation and review of laboratory results Abnormal [facility] No Panel Informationon 11-01 Interpretation and review of laboratory results Abnormal [facility] Colonoscopy studyon 04-03-19 22 No dictation [facility] Work Phone: [facility] Work Phone: EGDon 04-03-2021 No dictation [facility] Work Phone: EGDOrdered By: Geo Farmer on 04-03-2021 [facility] Work Phone: Glucose, Whole Bloodon 04-03 Glucose [Mass/Vol] 279 mg/dL High 74 - 100 mg/dL [facility] Interpretation and review of laboratory results Abnormal [facility] ALTOrdered By: Radha Montgomery o n 10-17-2020 ALT [Catalytic activity/Vol] 46 U/L High 5 - 41 U/L [employer] Phone: ASTOrdered By: Radha Montgomery o n 10-17-2020 AST [Catalytic activity/Vol] 32 U/L <40 [employer] Phone: Basic Metabolic PanelOrdered By: Radha Montgomery on 10-17-2020 Anion gap [Moles/Vol] 11 mmol/L 9 - 17 mmol/L [employer] Phone: Calcium [Mass/Vol] 9.8 mg/dL 8.6 - 10. 4 mg/dL [employer] Phone: [phone] Chloride [Moles/Vol] 98 mmol/L 98 - 10 7 mmol/L [employer] Phone: CO2 [Moles/Vol] 24 mmol/L 20 - 31 mmol/L [employer] Phone: Creatinine [Mass/Vol] 0.74 mg/dL 0.70 - 1.20 mg/dL [employer] Phone: GFR >60 >60 mL/min [employer] Phone: GFR Non- >60 >60 mL/min [employer] Phone: Glucose [Mass/Vol] 248 mg/dL High 70 - 99 mg/dL [employer] Phone: Potassium [Moles/Vol] 4.8 mmol/L 3.7 - 5.3 mmol/L [employer] Phone: Sodium [Moles/Vol] 133 mmol/L Low 135 - 144 mmol/L [employer] Phone: Urea nitrogen (BldV) [Mass/Vol] 14 mg/dL 8 - 23 mg/dL [employer] Phone: Urea nitrogen/Creatinine (Bld) [Mass ratio] 19 [employer] Phone: CBC Auto DifferentialOrdered By: Radha Montgomery on 10-17-2020 Absolute Eos # 0.34 [employer] [facility] Work Phone: Absolute Immature Granulocyte 0.06 [employer] Work Phone: Absolute Lymph # 1.90 [employer] [facility] Work Phone: Absolute [place] # 0.64 [employer] [facility] Work Phone: Basophils (Bld) [#/Vol] 0.03 10*3/uL [employer] Work Phone: Basophils/100 WBC (Bld) 0 % 0 - 2 % [employer] Phone: Differential Type NOT REPORTED [employer] Phone: Eosinophils/100 WBC (Bld) 4 % 1 - 4 % [employer] Phone: Hematocrit (Bld) [Volume fraction] 45.2 % 40.7 - 50.3 % [employer] Phone: Hemoglobin.gastrointes tinal spec 1 Ql (Stl) 15.7 g/dL 13.0 - 17.0 g/dL [employer] Phone: Immature granulocytes/100 WBC (Bld) 1 % High 0 [employer] Phone: Interpretation and review of laboratory results Abnormal [employer] Phone: Lymphocytes/100 WBC (Bld) 23 % Low 24 - 43 % [employer] Phone: MCH (RBC) [Entitic mass] 31.5 pg 25.2 - 33.5 pg [employer] Phone: MCHC (RBC) [Mass/Vol] 34.7 g/dL 28.4 - 34.8 g/dL [employer] Phone: MCV (RBC) [Entitic vol] 90.6 fL 82.6 - 102.9 fL [employer] Phone: Monocytes/100 WBC (Bld) 8 % 3 - 12 % [employer] Phone: NRBC Automated 0.0 0.0 per 100 WBC [employer] Phone: Platelet distribution width (Bld) [Ratio] 11.1 % Low 11.8 - 14.4 % [employer] Phone: Platelet Estimate NOT REPORTED [employer] Phone: Platelet mean volume (Bld) [Entitic vol] 9.8 fL 8.1 - 13.5 fL [employer] Phone: Platelets (Bld) [#/Vol] 164 10*3/uL [employer] Phone: RBC (Bld) [#/Vol] 4.99 10*6/uL 4.21 - 5.7 7 m/uL [employer] Phone: RBC (Bld) [#/Vol] NOT REPORTED [employer] Phone: Segmented neutrophils/100 WBC (Bld) 64 % 36 - 65 % [employer] Phone: Segs Absolute 5.18 [employer] Work Phone: WBC (Bld) [#/Vol] 8.2 10*3/uL [employer] Phone: WBC (Bld) [#/Vol] NOT REPORTED [employer] Phone: [employer] Phone: Hemoglobin [id number] By: Jane Montgomery on 10-17-2020 Glucose [Mass/Vol] 240 mg/dL [employer] Phone: Comment on above: The ADA and AACC rec ommend providing the estimated average glucose result to permit better patient understanding of their HBA1c result. HbA1c (Bld) [Mass fraction] 10.0 % High 4.0 - 6.0 % [employer] Phone: Interpretation and review of laboratory results Abnormal [employer] Phone: [employer] Phone: Laboratory - Chemistry and C hemistry - challengeOrdered By: Radha Montgomery on 10-17-2020 GFR/1.73 sq M.predicted MDRD (S/P/Bld) [Vol rate/Area] [employer] Phone: Comment on above: Average GFR for 60-6 9 years old: 85 mL/min/1.73sq m Chronic Kidney Disease: <60 mL/min/1.73sq m Kidney failure: <15 mL/min/1.73sq m eGFR calculated using average adult body mass. Additional eGFR calculator available at: http://www.Fliptu/multiple_crcl_2012.htm Stage 1: Some kidney damage normal GFR Stage 2: Mild kidney damage GFR 60-89 Stage 3: Moderate kidney damage GFR 30-59 Stage 4: Severe kidney damage GFR 15-29 Stage 5: Severe kidney damage GFR <15 ESRD - chronic treatment by dialysis or transplant Lipid PanelOrdered By: Radha Montgomery on 10-17-2020 Cholesterol [Mass/Vol] 160 mg/dL <200 [employer] Phone: Comment on above: Cholesterol Guidelines: <200 Desirable 200-240 Borderline >240 Undesirable Cholesterol in HDL [Mass/Vol] 37 mg/dL Low >40 [employer] Phone: Comment on above: HDL Guidelines: <40 Undesirable 40-59 Borderline >59 Desirable Cholesterol in LDL [Mass/Vol] 77 mg/dL 0 - 130 mg/dL [employer] Phone: Comment on above: LDL Guidelines: <100 Desirable 100-129 Near to/above Desirable 130-159 Borderline >159 Undesirable Direct (measured) LDL and calculated LDL are not interchangeable tests. Cholesterol in VLDL [Mass/Vol] NOT REPORTED High 1 - 30 mg/dL [employer] Phone: Cholesterol.total/Chol esterol in HDL [Mass ratio] 4.3 {ratio} <5 [employer] Phone: Interpretation and review of laboratory results Abnormal [employer] Phone: Triglyceride [Mass/Vol] 228 mg/dL High <150 [employer] Phone: Comment on above: Triglyceride Guidelines: <150 Desirable 150-199 Borderline 200-499 High >499 Very high Based on AHA Guidelines for fasting triglyceride, December 2011. [employer] Phone: Microalbumin, UrOrdered By: Radha Montgomery on 10-17-2020 Albumin/Creatinine DL <= 20 mg/L (24H U) [Mass ratio] 208 mg/L High <21 [employer] Phone: Albumin/Creatinine DL <= 20 mg/L (U) [Ratio] 358 High <17 mcg/mg creat [employer] Phone: Creatinine [Mass/Vol] 58.1 mg/dL 39.0 - 259.0 mg/dL [employer] Phone: Interpretation and review of laboratory results Abnormal [employer] Phone: [employer] Phone: No Panel InformationOrdered By: Radha Montgomery on 10-17-2020 Interpretation and review of laboratory results Abnormal [employer] Phone: [employer] Phone: Herb 09-16-2019 ALT [Catalytic activity/Vol] 43 U/L High 5 - 41 U/L [facility] [employer] Shantelle 09-16-2019 AST [Catalytic activity/Vol] 28 U/L <40 [facility] [place] Basic Metabolic Panelon 08-29 Anion gap [Moles/Vol] 13 mmol/L 9 - 17 mmol/L [place] Bun/Cre Ratio 16 [place] Calcium [Mass/Vol] 10.3 mg/dL 8.6 - 10. 4 mg/dL [facility] [place] Chloride [Moles/Vol] 99 mmol/L 98 - 10 7 mmol/L [place] CO2 [Moles/Vol] 26 mmol/L 20 - 31 mmol/L [place] Creatinine [Mass/Vol] 0.88 mg/dL 0.7 - 1.2 mg/dL [place] GFR >60 >60 mL/min [place] GFR Non- >60 >60 mL/min [place] Glucose [Mass/Vol] 157 mg/dL High 70 - 99 mg/dL [place] Potassium [Moles/Vol] 5.2 mmol/L 3.7 - 5.3 mmol/L [place] Sodium [Moles/Vol] 138 mmol/L 135 - 144 mmol/L [place] Urea nitrogen [Mass/Vol] 14 mg/dL 8 - 23 mg/dL [place] CBC Auto Differentialon 08-29 Basophils (Bld) [#/Vol] 0.05 10*3/uL [place] Basophils/100 WBC (Bld) 0 % 0 - 2 % [place] Differential Type NOT REPORTED [place] Eosinophils (Bld) [#/Vol] 0.38 10*3/uL [place] Eosinophils/100 WBC (Bld) 3 % 1 - 4 % [place] Erythrocyte distribution width (RBC) [Ratio] 11.4 % Low 11.8 - 14.4 % [place] Hematocrit (Bld) [Volume fraction] 48.6 % 40.7 - 50.3 % [place] Hemoglobin (Bld) [Mass/Vol] 16.5 g/dL 13 - 17 g/dL [place] Immature granulocytes (Bld) [#/Vol] 0 % 0 [place] Immature granulocytes (Bld) [#/Vol] 0.04 10*3/uL [place] Interpretation and review of laboratory results Abnormal [place] Lymphocytes (Bld) [#/Vol] 1.84 10*3/uL [place] Lymphocytes/100 WBC (Bld) 15 % Low 24 - 43 % [place] MCH (RBC) [Entitic mass] 31.3 pg 25.2 - 33.5 pg [place] MCHC (RBC) [Mass/Vol] 34.0 g/dL 28.4 - 34.8 g/dL [place] MCV (RBC) [Entitic vol] 92.2 fL 82.6 - 102.9 fL [place] Monocytes (Bld) [#/Vol] 1.00 10*3/uL [place] Monocytes/100 WBC (Bld) 8 % 3 - 12 % [place] Platelet mean volume (Bld) [Entitic vol] 10.0 fL 8.1 - 13.5 fL [place] Platelets (Bld) [#/Vol] NOT REPORTED [place] Platelets (Bld) [#/Vol] 217 10*3/uL [place] RBC (Bld) [#/Vol] 5.27 10*6/uL 4.21 - 5.7 7 m/uL [place] RBC morphology finding Nom (Bld) NOT REPORTED [place] Segmented neutrophils/100 WBC (Bld) 74 % High 36 - 65 % [place] Segs Absolute 9.11 High [place] WBC (Bld) [#/Vol] 0.0 10*3/uL 0.0 per 10 0 WBC [place] WBC (Bld) [#/Vol] 12.4 10*3/uL [place] WBC Morphology NOT REPORTED [place] Hemoglobin A1Con 09-16-2019 Glucose [Mass/Vol] 160 mg/dL [place] Comment on above: The ADA and AACC rec ommend providing the estimated average glucose result to permit better patient understanding of their HBA1c result. HbA1c (Bld) [Mass fraction] 7.2 % High 4.8 - 5.9 % [place] Interpretation and review of laboratory results Abnormal [place] Lipid Panelon 09-16-2019 Cholesterol [Mass/Vol] 161 mg/dL <200 [facility] [place] Comment on above: Cholesterol Guidelines: <200 Desirable 200-240 Borderline >240 Undesirable Cholesterol in HDL [Mass/Vol] 41 mg/dL >40 [place] Comment on above: HDL Guidelines: <40 Undesirable 40-59 Borderline >59 Desirable Cholesterol in LDL [Mass/Vol] 79 mg/dL 0 - 130 mg/dL [place] Comment on above: LDL Guidelines: <100 Desirable 100-129 Near to/above Desirable 130-159 Borderline >159 Undesirable Direct (measured) LDL and calculated LDL are not interchangeable tests. Cholesterol in VLDL [Mass/Vol] NOT REPORTED High 1 - 30 mg/dL [place] Cholesterol.total/Chol esterol in HDL [Mass ratio] 3.9 {ratio} <5 [place] Triglyceride [Mass/Vol] 203 mg/dL High <150 [place] Comment on above: Triglyceride Guidelines: <150 Desirable 150-199 Borderline 200-499 High >499 Very high Based on AHA Guidelines for fasting triglyceride, December 2011. Metabolic Panelon 09-16-2019 GFR/1.73 sq M predicted among non-blacks MDRD (S/P/Bld) [Vol rate/Area] [place] Comment on above: Average GFR for 60-6 9 years old: 85 mL/min/1.73sq m Chronic Kidney Disease: <60 mL/min/1.73sq m Kidney failure: <15 mL/min/1.73sq m eGFR calculated using average adult body mass. Additional eGFR calculator available at: http://www.[employer].MiTú/multiple_crcl_2011.htm Stage 1: Some kidney damage normal GFR Stage 2: Mild kidney damage GFR 60-89 Stage 3: Moderate kidney damage GFR 30-59 Stage 4: Severe kidney damage GFR 15-29 Stage 5: Severe kidney damage GFR <15 ESRD - chronic treatment by dialysis or transplant Microalbumin, Uron 0 Albumin/Creatinine DL <= 20 mg/L (24H U) [Mass ratio] 62 mg/L High <21 [place] Albumin/Creatinine DL <= 20 mg/L (U) [Ratio] 70 High <17 mcg/mg creat [place] Creatinine [Mass/Vol] 88.5 mg/dL 39 - 2 59 mg/dL [place] Interpretation and review of laboratory results Abnormal [place] Otheron 09-16-2019 Interpretation and review of laboratory results Abnormal [place] Basic Metabolic Panelon 10-0 Anion gap [Moles/Vol] 14 mmol/L 9 - 17 mmol/L [place] Bun/Cre Ratio 21 High [place] Calcium [Mass/Vol] 10.4 mg/dL 8.6 - 10. 4 mg/dL [place] Chloride [Moles/Vol] 101 mmol/L 98 - 10 7 mmol/L [place] CO2 [Moles/Vol] 25 mmol/L 20 - 31 mmol/L [place] Creatinine [Mass/Vol] 0.77 mg/dL 0.7 - 1.2 mg/dL [place] GFR >60 >60 mL/min [place] GFR Non- >60 >60 mL/min [place] Glucose [Mass/Vol] 218 mg/dL High 70 - 99 mg/dL [place] Interpretation and review of laboratory results Abnormal [place] Potassium [Moles/Vol] 5.2 mmol/L 3.7 - 5.3 mmol/L [place] Sodium [Moles/Vol] 140 mmol/L 135 - 144 mmol/L [place] Urea nitrogen [Mass/Vol] 16 mg/dL 8 - 23 mg/dL [place] Hemoglobin A1Con 01-06-2019 Glucose [Mass/Vol] 166 mg/dL [place] Comment on above: The ADA and AACC rec ommend providing the estimated average glucose result to permit better patient understanding of their HBA1c result. HbA1c (Bld) [Mass fraction] 7.4 % High 4.8 - 5.9 % [place] Interpretation and review of laboratory results Abnormal [place] Metabolic Panelon 01-06-2019 GFR/1.73 sq M predicted among non-blacks MDRD (S/P/Bld) [Vol rate/Area] [place] Comment on above: Stage 1: Some kidney damage normal GFR Stage 2: Mild kidney damage GFR 60-89 Stage 3: Moderate kidney damage GFR 30-59 Stage 4: Severe kidney damage GFR 15-29 Stage 5: Severe kidney damage GFR <15 ESRD - chronic treatment by dialysis or transplant Average GFR for 60-6 9 years old: 85 mL/min/1.73sq m Chronic Kidney Disease: <60 mL/min/1.73sq m Kidney failure: <15 mL/min/1.73sq m eGFR calculated using average adult body mass. Additional eGFR calculator available at: http://www.[employer]/multiple_crcl_2012.htm Microalbumin, Uron 9 Albumin/Creatinine DL <= 20 mg/L (24H U) [Mass ratio] 82 mg/L High <21 [place] Albumin/Creatinine DL <= 20 mg/L (U) [Ratio] 105 High <17 mcg/mg creat [place] Creatinine [Mass/Vol] 77.9 mg/dL 39 - 2 59 mg/dL [place] Interpretation and review of laboratory results Abnormal [place] Otolaryngology Office/Clinic Noteon 09-17-2017 Otolaryngology Office/Clinic Note Chief Complaint Patient states I am coming back in to go over cat scan results. History of Present Illness Patient returns today. His the NG reveals an idiopathic response to warm stimulus in the right ear. More interestingly he has a positive fistula test in that ear with rotation of his eyes with pressure on the ear canal. I was able to review his films much closer today and her reveals a dehiscence of the horizontal canal which is the likely cause of this problem.Review of Systems General Adult ROS Fatigue: No Appetite change: No Cardiovascular EENMT Ear pain: Yes Hearing loss: Yes Tinnitus: Yes Gastrointestinal Dysphagia: No Heartburn: No Genitourinary Hematologic/Lymphatic Musculoskeletal Neurological Psychiatric Respiratory Cough: No Shortness_of_breath: No SkinPhysical Exam Vitals & Measurements BP: 139/80 Ears: Using the microscope I visualized the right ear canal. The TM reveals thickening and some moisture superiorly. I began suctioning this area was able to suction out a fair amount of squamous debris. This reveals an attic defect with squamous epithelium bodies of the ossicles. Additional Vitals BP Position/Location: Sitting, Right arm Peripheral Pulse Rate: 74 bpmAssessment/Plan 1. 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 Michael Abel at [facility]. He is aware that there is risk of hearing loss correcting his fistula and removing the tumor.Problem List/Past Medical History Ongoing Diabetes mellitus type 2 Hypercholesterolemia Hypertension Historical No qualifying dataProcedure/Surgical History cataract surgery.Medications amlodipine-benazepril 10 mg-40 mg oral capsule atenolol 100 mg oral tablet Farxiga 5 mg oral tablet glipiZIDE 10 mg oral tablet Januvia 100 mg oral tablet, 100 mg, 1 tabs, Oral, Daily lovastatin 40 mg oral tablet metFORMIN 1000 mg oral tablet raNITIdine 150 mg oral tabletAllergies No Known Medication AllergiesSocial History Alcohol Current, Beer, 1-2 times per week Substance Abuse Denies All Tobacco Former smoker, 1 per day. Packs, 10 year(s).Family History Cancer: Father. Hypertension: Mother.Diagnostic Results No qualifying data available. No qualifying data available. No qualifying data available. No qualifying data available.Electronically signed by _Ricky Rangel MD 09/17/17 16:19 EDT Normal [facility] Otolaryngology Office/Clinic Note VNG completed- please see report and tracings. Electronically signed by BRITTON Ibanez M.S., Trista K 09/17/17 16:01 EDT Normal [facility] Otolaryngology Consultationo n 08-14-2017 Otolaryngology Consultation Chief Complaint Patient states I have a Cholesteatoma, right History of Present Illness This 57-year-old gentleman presents with a diagnosis of cholesteatoma in his right ear. His symptoms began about 2 years ago with drainage, hearing loss in that ear, with dizziness-lightheadedness , and otalgia. He brought a CAT scan with him which I reviewed which reveals opacification of the mastoid though no significant dilatation of the attic. There is circumferential thickening of the middle ear and the ossicles were not as clearly visible as they are on the contralateral side. Roshan on a course of Ciprodex drops. His dizziness which is a lightheaded sensation can occur any time, is not associated with palpitations her posture but is not associated with change in his hearing otalgia or vertigo. He can create the sensation by causing pressure in his canal.Review of Systems General Adult ROS Fatigue: Yes Appetite change: No Weight gain: Yes Weight Loss: No Cardiovascular Chest pain/pressure: No Palpitations: No EENMT Ear pain: Yes Hearing loss: Yes Other EENMT: Yes Tinnitus: Yes Gastrointestinal Dysphagia: No Heartburn: Yes Genitourinary Decreased urine output: No Frequency: Yes Hematologic/Lymphatic Bleeding tendencies: No Bruising: No Musculoskeletal Back pain: No Joint pain: No Joint stiffness: No Neurological Headache: Yes Memory problems: No Psychiatric Anxiety: No Depression: No Respiratory Cough: No Shortness_of_breath: No Wheezing: No Skin Change in skin color: No Itching: No Lesion/change in moles: No Rash: NoPhysical Exam Vitals & Measurements BP: 134/87 WT: 92 kg General: [Alert and oriented, well nourished, no acute distress]. Eye: [PERRL, EOMI, normal conjunctiva]. HENT: [Normocephalic Ears: Left canal is clear tympanic membrane is intact with a anterior dimer evidence of a healed perfect. The right canal has a lot of moist debris. Using the operating microscope I suctioned this debris free from inferiorly and around the TM and exam the TM in its entirety. The middle ear appears aerated the TM shows no active disease and I see no evidence of a retraction pocket or lesion in the attic or superior TM to support evidence of a cholesteatoma. Nose: septal deformity posteriorly on the left with this rotation anteriorly on the right. Mucosa is otherwise healthy Oral cavity: Edentulous upper dentition with poor dental repair lower. Mucosa moist. Oropharynx unremarkable without postnasal drainage Neck: [Supple, non-tender, no lymphadenopathy]. Lungs: [Clear to auscultation and percussion, non-labored respiration]. Heart: [Normal rate, regular rhythm, no murmur, gallop or edema]. Skin: [Skin is warm, dry and pink, no rashes or lesions]. Neurologic: [Awake, alert, and oriented X3, CN II-XII intact]. Psychiatric: [Cooperative, appropriate mood and affect]. Additional Vitals Body Mass Index Measured: 30.04 kg/m2 BP Position/Location: Sitting, Right arm Peripheral Pulse Rate: 66 bpmAssessment/Plan 1. 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 Dizziness Renogram: There is a bilateral 30-10 to proximally 90 dB sensorineural hearing level with an average of 30 dB air-bone gap greater at 4000 Hz. His speech discrimination is 96% right and 92% left. Tympanograms show flattened mobility on the left and is flat on the right Recommendation: I would like to get a follow-up CAT scan of his ear and mastoid as a present ct iis more than 9 months old. His history is somewhat inconsistent for cholesteatoma as they normally do not occur suddenly after 56 years having been asymptomatic before. His symptoms of dizziness aren't consistent with inner ear dysfunction though he can elicit the symptoms by creating pressure on his ear which would suggest that this isn't in her ear dysfunction of some sort. The most inserting variable as Leslie normal his tympanic membrane looks on exam. Like to see him back in a couple weeks with his new CAT scan. I've discussed the options of middle ear exploration mastoidectomy. We could attempt vestibular testing which I will order.Problem List/Past Medical History Ongoing Diabetes mellitus type 2 Hypercholesterolemia Hypertension Historical No qualifying dataProcedure/Surgical History cataract surgery.Medications Home amlodipine-benazepril 10 mg-40 mg oral capsule atenolol 100 mg oral tablet Farxiga 5 mg oral tablet glipiZIDE 10 mg oral tablet Januvia 100 mg oral tablet, 100 mg, 1 tabs, Oral, Daily lovastatin 40 mg oral tablet metFORMIN 1000 mg oral tablet raNITIdine 150 mg oral tablet Inpatient No active inpatient medications Prescriptions No active PrescriptionsAllergies No Known Medication AllergiesSocial History Alcohol Current, Beer, 1-2 times per week Substance Abuse Denies All Tobacco Former smoker, 1 per day. Packs, 10 year(s).Family History Cancer: Father. Hypertension: Mother.Lab Results Microbiology No qualifying data available.Electronically signed by _Ricky Rangel MD 08/14/17 14:30 EDT Normal [facility] Comp Metabolic Profon 2017 (cont.) Normal [facility] Comment on above: Result Comment: Aver age GFR for 50-59 years old: 93 mL/min/1.73sq mChronic Kidney Disease: <60 mL/min/1.73sq mKidney failure: <15 mL/min/1.73sq meGFR calculated using average adult body mass. Additional eGFR calculator available at:http://www.[employer]/multiple_crcl_2012.htmPerformed at [facility] [address] [place] [address] Performed By: #### Z FAST, CP, LIPR, GLYHGB, DIME ####[facility] [facility] [place] [address] Alanine aminotransferase (ALT) 52 U/L High 5-41 [facility] Comment on above: Performed By: #### Z FAST, CP, LIPR, GLYHGB, DIME ####[facility] [facility] [place] [address] Albumin 4.7 g/dL Normal 3.5-5.2 [facility] Comment on above: Performed By: #### Z FAST, CP, LIPR, GLYHGB, DIME ####[facility] [id number] Alkaline Phos 59 U/L Normal 40-129 [facility] Comment on above: Performed By: #### Z FAST, CP, LIPR, GLYHGB, DIME ####[facility] [facility] [address] [place] [address] Anion gap 14 mmol/L Normal 9-17 [facility] Comment on above: Performed By: #### Z FAST, CP, LIPR, GLYHGB, DIME ####[facility] [facility] [place] [address] Aspartate aminotransferase (AST) 32 U/L Normal <40 [facility] Comment on above: Performed By: #### Z FAST, CP, LIPR, GLYHGB, DIME ####[facility] [facility] [place] [address] Bilirubin Ql (U) 0.39 mg/dL Normal 0.30-1.20 [facility] Comment on above: Performed By: #### Mohan FAST, CP, LIPR, GLYHGB, DIME ####[facility] [facility] [place] [address] BUN/CRE Ratio 21 High 9-20 [facility] Comment on above: Performed By: #### Z FAST, CP, LIPR, GLYHGB, DIME ####[facility] [facility] [place] [address] Calcium 10.5 mg/dL High 8.6-10.4 [facility] Comment on above: Performed By: #### Z FAST, CP, LIPR, GLYHGB, DIME ####[facility] [place] [address] Chloride 100 mmol/L Normal 98-107 [facility] Comment on above: Performed By: #### Z FAST, CP, LIPR, GLYHGB, DIME ####[facility] [place] [address] CO2 24 mmol/L Normal 20-31 [facility] Comment on above: Performed By: #### Z FAST, CP, LIPR, GLYHGB, DIME ####[facility] [facility] [place] [address] Creatinine 0.84 mg/dL Normal 0.70-1.20 [facility] Comment on above: Performed By: #### Z FAST, CP, LIPR, GLYHGB, DIME ####[facility] [facility] [place] [address] eGFR (non-black) mL/min/{1.73_m2} Normal >60 [facility] Comment on above: Performed By: #### Z FAST, CP, LIPR, GLYHGB, DIME ####[place] [address] [place] [address] Glucose mass conc 166 mg/dL High 70-99 [facility] Comment on above: Performed By: #### Z FAST, CP, LIPR, GLYHGB, DIME ####[facility] [facility] [place] [address] Potassium molar conc 4.8 mmol/L Normal 3.7-5.3 [facility] Comment on above: Performed By: #### Z FAST, CP, LIPR, GLYHGB, DIME ####[facility] [facility] [place] [address] Protein 8.0 g/dL Normal 6.4-8.3 [facility] Comment on above: Performed By: #### Z FAST, CP, LIPR, GLYHGB, DIME ####[facility] [facility] [place] [address] Sodium 138 mmol/L Normal 135-144 [facility] Comment on above: Performed By: #### Z FAST, CP, LIPR, GLYHGB, DIME ####[facility] [facility] [place] [address] Urea nitrogen 18 mg/dL Normal 6-20 [facility] Comment on above: Performed By: #### Z FAST, CP, LIPR, GLYHGB, DIME ####[facility], [place] [phone] Albumin/Globulin Ratio NOT REPORTED Normal 1.0-2.5 [facility] Comment on above: Performed By: #### Z FAST, CP, LIPR, GLYHGB, DIME ####[facility] [place] [address] Staging: NOT REPORTED Normal [facility] Comment on above: Performed By: #### Z FAST, CP, LIPR, GLYHGB, DIME ####[facility] [place] [phone] D-Dimer Teston 07-15-2017 D-Dimer Test 0.20 mg/L FEU Normal 0.00-0.50 [facility] Comment on above: Result Comment: Elev ated levels of D dimer can be seen in any state of coagulation activation including DVT, PE, arterial thrombosis, DIC, inflamatory disease, trauma, malignancy, sepsis, infection, hematoma, liver disease, post surgical state, , atherosclerosis, old age.When combined with a low clinical probability, a D dimer value of <0.50 mg/L is considered negative for DVT and PE (negative predictive value of 98%).Performed at [facility] [address] [place] [address] [phone] Performed By: #### Z FAST, CP, LIPR, GLYHGB, DIME ####[facility] [place] [phone] Hemoglobin A1Con 07-15-2017 Glucose mass conc 169 mg/dL Normal [facility] Comment on above: Result Comment: The ADA and AACC recommend providing the estimated average glucose result to permit better patient understanding of their HBA1c result.Performed at [facility] [address] [place] [address] Performed By: #### Z FAST, CP, LIPR, GLYHGB, DIME ####[facility] [place] [place] [address] Hemoglobin A1c/Hemoglobin.total mass fraction (Bld) 7.5 % High 4.8-5.9 [facility] Comment on above: Performed By: #### Mohan FAST, CP, LIPR, GLYHGB, DIME ####[facility] [place] [address] Lipid Profileon 07-15-2017 Cholesterol 177 mg/dL Normal <200 [facility] Comment on above: Result Comment: Chol esterol Guidelines: <200 Desirable 200-240 Borderline >240 Undesirable Performed By: #### Z FAST, CP, LIPR, GLYHGB, DIME ####[facility] [place] [address] Cholesterol to HDL Ratio 4.4 {ratio} Normal <5 [facility] Comment on above: Performed By: #### Mohan FAST, CP, LIPR, GLYHGB, DIME ####[facility] [facility] [place] [address] HDL Cholesterol 40 mg/dL Low >40 [facility] Comment on above: Result Comment: HDL Guidelines: <40 Undesirable 40-59 Borderline >59 Desirable Performed By: #### Z FAST, CP, LIPR, GLYHGB, DIME ####[facility] [facility] [place] [address] LDL Cholesterol 84 mg/dL Normal 0-130 [facility] Comment on above: Result Comment: LDL Guidelines: <100 Desirable 100-129 Near to/above Desirable 130-159 Borderline >159 UndesirableDirect (measured) LDL and calculated LDL are not interchangeable tests. Performed By: #### Z FAST, CP, LIPR, GLYHGB, DIME ####[facility] [place] [address] Triglyceride 266 mg/dL High <150 [facility] Comment on above: Result Comment: Trig lyceride Guidelines: <150 Desirable 150- 199 Borderline 200-499 High >499 Very high Based on AHA Guidelines for fasting triglyceride, December 2011.Performed at [facility] [address] [place] [address] Performed By: #### Z FAST, CP, LIPR, GLYHGB, DIME ####[facility] [facility] [place] [address] Cholesterol in VLDL mass conc NOT REPORTED Normal 04-29 [facility] Comment on above: Performed By: #### Z FAST, CP, LIPR, GLYHGB, DIME ####[facility] [facility] [place] [address] Patient fasting?on 8 Patient fasting? yes Normal [facility] Comment on above: Result Comment: Perf ormed at [facility] [address] [place] [address] Performed By: #### Z FAST, CP, LIPR, GLYHGB, DIME ####[facility] [place] [address] XR KNEE RIGHT (3 VIEWS)on XR KNEE RIGHT (3 VIEWS) COMPARISON: No comparison.HISTORY: Right knee pain one year, 57-year-old male. TECHNIQUE: Right knee series: Includes standing views of both knees, lateral view right knee and sunrise view right patella.FINDINGS:FRACTURE /DISLOCATION: None.Medial joint compartment: Moderate degenerative narrowing.Lateral joint compartment: Normal.Patellofemoral space: Moderate degenerative narrowing. Bipartite patella right knee.Effusion: No effusion.Chondrocalcinosi s: None.Alignment: Moderate varus angulation.Soft tissue swelling: Moderate soft tissue swelling, anteriorly at the patella.Vascular calcifications: Femoral artery calcifications.Loose bodies: None.Additional findings: Minimal degenerative narrowing medial compartment left knee.IMPRESSION: 1. Varus angulation due to loss of the medial joint compartment right knee.2. Soft tissue swelling anteriorly.3. Bipartite patella right knee.Interpreted by:SANDY Capone Jr.igned by:Bhavin Morataya Jr., MD07/15/17inal result Normal [facility] Vital Signs Date Time Vital Sign Value Performing Clinician Agustin pope 04-03-2021 09:45-0500 Diastolic blood pressure 75 mm[Hg] Watson Ca MD Work Phone: [facility] 04-03-2021 09:45-0500 Heart rate 68 /min Watson Ca MD Work Phone: [facility] 04-03-2021 09:45-0500 Respiratory rate 18 /min Watson Ca MD Work Phone: [facility] 04-03-2021 09:45-0500 SaO2% (BldA) [Mass fraction] 95 % Watson Ca MD Work Phone: [facility] 04-03-2021 09:45-0500 Systolic blood pressure 123 mm[Hg] Watson Ca MD Work Phone: [facility] 04-03-2021 09:19-0500 Body temperature 97.39 [degF] Watson Ca MD Work Phone: [facility] 04-03-2021 08:15-0500 Body height 172.7 cm Watson Ca MD Work Phone: [facility] 04-03-2021 08:15-0500 Body mass index (BMI) [Ratio] 29.5 kg/m2 Watson Ca MD Work Phone: [facility] 04-03-2021 08:15-0500 Body weight 88 kg Watson Ca MD Work Phone: [facility] Encounters Encounter Date Encounter Type Care Provider Facility Start: 05-20-2023 End: 05-20-2023 ambulatory DONY CROW Not Available Start: 05-12-2023 Bamboo flowsheet Jillian dick NP Work Phone: [facility] Start: 05-12-2023 Bamboo flowsheet Jillian Paul g RN LABOR AND DELIVERY Work Phone: [facility] Start: 05-12-2023 End: 05-13-2023 ambulatory JILLIAN RUSSELL Not Available Start: 05-12-2023 End: 05-12-2023 Office outpatient visit 15 minutes Jillian Russell RN LABOR AND DELIVERY Work Phone: [facility] Comment on above: Right knee pain, uns pecified chronicity (Primary Dx); Arthritis of right knee Start: 11-06-2022 End: 11-07-2022 ambulatory RADHA MONTGOMERY [facility] Start: 11-01-2021 End: 11-01-2021 Subsequent hospital visit by physician Radha Montgomery APRN - [employer] Work Phone: [facility] Laboratory Comment on above: Type 2 diabetes megan itus with complication, without long-term current use of insulin ([facility]) Start: 04-03-2021 End: 04-03-2021 Subsequent hospital visit by physician Watson Ca MD Work Phone: [facility] OR Start: 01-16-2021 End: 03-15-2021 ambulatory JILLIAN RUSSELL Facility:[facility] Start: 10-17-2020 End: 10-17-2020 Subsequent hospital visit by physician Radha Montgomery SLEEVE SEPARATOR - [employer] Work Phone: [facility] Laboratory Comment on above: Type 2 diabetes megan itus with complication, without long-term current use of insulin ([facility]) Start: 01-13-2020 End: 01-13-2020 Subsequent hospital visit by physician Cari Covid Screening Schedule [facility] Covid Screening Comment on above: Viral gastroenteriti s Start: 09-16-2019 End: 09-16-2019 Subsequent [facility] Comment on above: Dyslipidemia; Type 2 diabetes mellitus with complication, without long-term current use of insulin ([facility]) Start: 01-06-2019 End: 01-06-2019 Subsequent hospital visit by physician [facility] Comment on above: Type 2 diabetes megan itus with complication, without long-term current use of insulin ([facility]) Start: 09-17-2017 End: 09-18-2017 Ambulatory RICKY RANGEL Facility:[facility] Start: 09-17-2017 End: 09-18-2017 Ambulatory Genet Cramer Facility:[facility] Start: 08-14-2017 End: 08-15-2017 Ambulatory RICKY RANGEL Facility:[facility] Start: 07-15-2017 End: 07-18-2017 Ambulatory [facility] Start: 07-02-2017 Ambulatory RICKY RANGEL Facility :[facility] Procedures Date Procedure Procedure Detail Performing Clinician Start: 05-12-2023 Radiologic examination knee 1/2 views Jillian Russell NP Work Phone: Start: 11-01-2021 Lipid panel Radha W Might SLEEVE SEPARATOR - AUDIOLOGY DIRECTOR Work Phone: Start: 11-01-2021 Urine albumin quantitative Radha W Might SLEEVE SEPARATOR - AUDIOLOGY DIRECTOR Work Phone: Start: 11-01-2021 Basic metabolic panel calcium total Hugo t W Might SLEEVE SEPARATOR - AUDIOLOGY DIRECTOR Work Phone: Start: 04-03-2021 End: 04-03-2021 Colonoscopy Watson Ca MD Work Phone: Start: 04-03-2021 Esophagogastroduodenoscopy Watson calle MD Work Phone: Start: 04-03-2021 GLUCOSE, WHOLE BLOOD Watson Ca MD Work Phone: Start: 10-17-2020 Urine albumin quantitative Radha W Might SLEEVE SEPARATOR - AUDIOLOGY DIRECTOR Work Phone: Start: 10-17-2020 Basic metabolic panel calcium total Hugo t W Might SLEEVE SEPARATOR - AUDIOLOGY DIRECTOR Work Phone: Start: 10-17-2020 Lipid panel Radha W Might SLEEVE SEPARATOR - AUDIOLOGY DIRECTOR Work Phone: Start: 09-16-2019 Urine albumin quantitative Radha W Might Work Phone: Start: 09-16-2019 Basic metabolic panel calcium total Hugo t W Might Work Phone: Start: 09-16-2019 Blood count complete auto&auto difrntl wbc Radha W Might Work Phone: Start: 09-16-2019 Hemoglobin glycosylated a1c Radha W Migh t Work Phone: Start: 09-16-2019 Lipid panel Radha W Might Work Phone: Start: 09-16-2019 Transferase alanine amino alt sgpt Radha W Might Work Phone: Start: 09-16-2019 Transferase aspartate amino ast sgot Radha W Might Work Phone: Start: 01-06-2019 Urine albumin quantitative Radha W Might Work Phone: Start: 01-06-2019 Basic metabolic panel calcium total Hugo t W Might Work Phone: Start: 01-06-2019 Hemoglobin glycosylated a1c Radha W Migh t Work Phone: Start: 07-15-2017 Radiologic examination knee 3 views EMILIA HARPER ARANA Start: 07-15-2017 COMPREHENSIVE METABOLIC PANEL BECAC AMBROSE Start: 07-15-2017 D-DIMER, QUANTITATIVE BECCA SUMIT Start: 07-15-2017 HEMOGLOBIN A1C BECCA SUMIT Start: 07-15-2017 Lipid panel BECCA ARANA Start: 07-15-2017 PATIENT FASTING? BECCA ARANA Plan of Treatment Date Care Activity Detail Author Start: 04-03-2026 [facility]ening [facility] malignant neoplasm of colon [facility] Start: 07-16-2023 Pneumococcal 0-64 years Vaccine (2 of 2 - PPSV23) Pneumococcal 0-64 years Vaccine (2 of 2 - PPSV23) [facility] Start: 05-20-2023 End: 05-20-2023 Patient encounter procedure 05/20/2023 1:00 PM EST Off ice Visit [facility] [address] [facility] [address] [place] [address] Dony Crow DO [address] [place] [address] [facility] Start: 05-12-2023 End: 05-12-2024 Hemoglobin A1c measurement Hemoglobin A1c Lab Routine Right knee pain, unspecified chronicity Expected: 05/12/2023 (Approximate), Expires: 05/12/2024 [facility] Work Phone: Comment on above: Expected: 05/12/2023 (Approximate), Expi res: 05/12/2024 Start: 05-12-2023 End: 05-12-2023 Patient encounter procedure 05/12/2023 9:00 AM EST Off ice Visit [facility] [address] [facility] [address] [place] [address] Jillian Russell, RN LABOR AND DELIVERY [address] [facility] [address] [place] [address] Right knee pain, unspecified chronicity (Primary Dx); Arthritis of right knee [facility] Comment on above: Right knee pain, unspecified chronicity (Primary Dx); Arthritis of right knee Start: 05-09-2022 Depression Screen [facility] Start: 05-09-2022 Hemoglobin A1c measurement A1C test (Diabetic or Prediabetic) [facility] Start: 05-09-2022 Hepatitis C screening [facility]atitis C [facility] Comment on above: Postponed from 1976 (Patient Refus ed) Start: 05-09-2022 HIV screening [facility] Comment on above: Postponed from 1973 (Patient Refus ed) Start: 01-31-2022 Shingles Vaccine (1 of 2) Shingles Vaccine (1 of 2) [facility] ezekiel Comment on above: Postponed from 2008 (Patient Refus ed) Start: 12-09-2021 Diabetic retinal exam Diabetic retinal exam [facility] Start: 11-29-2021 Influenza vaccination Flu vaccine (#1) [facility] [employer] [facility] Start: 11-09-2021 End: 11-09-2021 Patient encounter procedure 11/09/2021 Office Visit Primary Care aRdha Montgomery, SLEEVE SEPARATOR - AUDIOLOGY DIRECTOR [address] [facility] [place] [address] [facility] Patrick Start: 11-07-2021 Screening for malignant neoplasm of colon FIT/FOBT: Average risk [facility] [employer] Start: 10-31-2021 COVID-19 Vaccine (1) COVID-19 Vaccine (1) [facility] Comment on above: Postponed from 1963 (Not Indicated ) Start: 10-31-2021 Depression Screen Depression Screen [employer] Start: 10-31-2021 Diabetic foot examination Diabetic foot exam [facility] Start: 10-31-2021 DTaP/Tdap/Td vaccine (1 - Tdap) DTaP/Tdap/Td vaccine (1 - Tdap) [employer] Comment on above: Postponed from 1977 (Patient Refus ed) Start: 10-17-2021 Creatinine measurement Creatinine monitoring [facility] Start: 10-17-2021 Diabetic microalbuminuria test Diabetic microalbuminur ia test [employer] Work Phone: Start: 10-17-2021 Hemoglobin A1c measurement A1C test (Diabetic or Prediabetic) [employer] Work Phone: Start: 10-17-2021 [facility]id panel [facility] Start: 10-17-2021 Potassium monitoring Potassium monitoring [facility] Start: 10-17-2021 Urine screening for protein Diabetic microalbuminuria test [employer] Start: 05-03-2021 Hemoglobin A1c measurement A1C test (Diabetic or Prediabetic) [facility] Start: 05-03-2021 End: 05-03-2021 Patient encounter procedure 05/03/2021 Office Visit Primary Care Radha Montgomery, SLEEVE SEPARATOR - AUDIOLOGY DIRECTOR [address] [place] [address] [facility] Start: 04-10-2021 End: 04-10-2021 Patient encounter procedure 04/10/2021 Office Visit General Surgery Watson Ca MD [address] [place] [address] [address] [place] [address] [facility] Start: 04-03-2021 End: 04-03-2021 Colon ca scrn not hi rsk ind COLORECTAL CANCER SCREENI NG, NOT HIGH RISK POSITIVE FIT 04/03/2021 8:53 AM [facility] Start: 04-03-2021 End: 04-03-2021 Esophagogastroduodenoscopy transoral diagnostic EGD ESOPHAGOGASTRODUODENOSCOPY POSITIVE FIT 04/03/2021 8:53 AM [facility] Start: 03-27-2021 Hepatitis C screening Hepatitis C screen [facility] Phone: Comment on above: Postponed from 1958 (Patient Refus ed) Start: 03-27-2021 HIV screening HIV screen [facility] Phone: Comment on above: Postponed from 1973 (Patient Refus ed) Start: 11-29-2020 Influenza vaccination Flu vaccine (#1) [facility] Phone: Start: 10-31-2020 End: 10-31-2020 Patient encounter procedure 10/31/2020 Office Visit Primary Care Radha Montgomery, SLEEVE SEPARATOR - AUDIOLOGY DIRECTOR [address] [place] [address] [phone] [facility] Start: 09-21-2020 Diabetic foot examination Diabetic foot exam [place] Start: 09-21-2020 Diabetic retinal exam Diabetic retinal exam [place] Comment on above: Postponed from 1968 (Patient Refus ed) Start: 09-21-2020 DTaP/Tdap/Td vaccine (1 - Tdap) DTaP/Tdap/Td vaccine (1 - Tdap) [place] Comment on above: Postponed from 1977 (Patient Refus ed) Start: 09-21-2020 Shingles Vaccine (1 of 2) Shingles Vaccine (1 of 2) [place] Comment on above: Postponed from 2008 (Patient Refus ed) Start: 09-15-2020 Creatinine measurement Creatinine monitoring [place] Start: 09-15-2020 Diabetic microalbuminuria test Diabetic microalbuminur ia test [place] Start: 09-15-2020 HbA1c (Bld) [Mass fraction] A1C test (Diabetic or Prediabetic) [place] Start: 09-15-2020 Lipid panel Lipid screen [place] Start: 09-15-2020 Potassium monitoring Potassium monitoring [place] Start: 03-27-2020 End: 03-27-2020 Office Visit 03/27/2020 Office Visit Primary Care Radha Montgomery SLEEVE SEPARATOR - AUDIOLOGY DIRECTOR [address] [place] [address] [facility] Start: 03-23-2020 Hepatitis C screening Hepatitis C screen [place] Comment on above: Postponed from 1958 (Patient Refus ed) Start: 03-23-2020 HIV screening HIV screen [place] Comment on above: Postponed from 1973 (Patient Refus ed) Start: 03-07-2020 Colon cancer screen colonoscopy Colon cancer screen colonoscopy [place] Start: 03-07-2020 Screening for malignant neoplasm of colon Colon cancer screen colonoscopy [facility] Start: 01-07-2020 Creatinine measurement Creatinine monitoring [place] Start: 01-07-2020 Diabetic microalbuminuria test Diabetic microalbuminur ia test [place] Start: 01-07-2020 HbA1c (Bld) [Mass fraction] A1C test (Diabetic or Prediabetic) [place] Start: 01-07-2020 Potassium monitoring Potassium monitoring [place] Start: 11-30-2019 Influenza vaccination Flu vaccine (#1) [place] Start: 09-22-2019 End: 09-22-2019 Office Visit 09/22/2019 Office Visit Primary Care Radha Montgomery SLEEVE SEPARATOR - AUDIOLOGY DIRECTOR [address] [place] [address] [facility] Start: 07-16-2019 Pneumococcal 0-64 years Vaccine (2 - PCV) Pneumococcal 0-64 years Vaccine (2 - PCV) [facility] Start: 07-07-2019 A1C test (Diabetic or Prediabetic) A1C test (Diabetic or Prediabetic) [place] Start: 07-07-2019 Creatinine monitoring Creatinine monitoring [place] Start: 07-07-2019 Diabetic microalbuminuria test Diabetic microalbuminur ia test [place] Start: 07-07-2019 Lipid panel Lipid screen [place] Start: 07-07-2019 Lipid screen Lipid screen [place] Start: 07-07-2019 Potassium monitoring Potassium monitoring [place] Start: 01-19-2019 [object Object] Diabetic foot exam [place] Start: 01-19-2019 Diabetic foot examination Diabetic foot exam [place] Start: 01-19-2019 Diabetic retinal exam Diabetic retinal exam [place] Comment on above: Postponed from 1968 (Patient Refus ed) Start: 01-19-2019 DTaP/Tdap/Td vaccine (1 - Tdap) DTaP/Tdap/Td vaccine (1 - Tdap) [place] Comment on above: Postponed from 1977 (Patient Refus ed) Start: 01-19-2019 Hepatitis C screen Hepatitis C screen [place] Comment on above: Postponed from 1958 (Patient Refus ed) Start: 01-19-2019 HIV screen HIV screen [place] Comment on above: Postponed from 1973 (Patient Refus ed) Start: 01-19-2019 Shingles Vaccine (1 of 2) Shingles Vaccine (1 of 2) [place] Comment on above: Postponed from 2008 (Patient Refus ed) Start: 01-14-2019 End: 01-14-2019 Office Visit 01/14/2019 Office Visit Primary Care Radha Montgomery, SLEEVE SEPARATOR - AUDIOLOGY DIRECTOR [address] [place] [address] [facility] [place] Start: 11-29-2018 Influenza vaccination Flu vaccine (#1) [place] Start: 2008 Shingles Vaccine (1 of 2) Shingles Vaccine (1 of 2) [place] Start: 2003 Screening for malignant neoplasm of colon [facility] Start: 1998 Prostate specific antigen measurement Prostate Specific Antigen (PSA) Screening or Monitoring [facility] Start: 1977 DTaP/Tdap/Td vaccine (1 - Tdap) DTaP/Tdap/Td vaccine (1 - Tdap) [facility] Start: 1973 HIV screening HIV screen [facility] [employer] Start: 1970 COVID-19 Vaccine (1) COVID-19 Vaccine (1) [facility] Phone: Start: 1968 Diabetic retinal exam Diabetic retinal exam [facility] [place] Start: 1958 COVID-19 Vaccine (#1) COVID-19 Vaccine (#1) [facility] Start: 1958 Hepatitis C screening Hepatitis C screen [facility] End: 01-13-2020 COVID-19 Ambulatory COVID-19 Ambulatory Lab Routine Viral gastroenteritis 1 Occurrences starting 01/13/2020 until 01/13/2020 [place] Comment on above: 1 Occurrences starting 01/13/2020 until 01/13/2020 COVID-19 Ambulatory COVID-19 Amb ulatory Lab Routine Viral gastroenteritis 01/13/2020 11:25 AM EDT [place] End: 04-03-2021 Glucose [Mass/volume] in Serum or Plasma [facility] [employer] Phone: Comment on above: One Time for 1 Occurrences starting 06/2021 until 04/03/2021 As Needed until disc ontinued starting 04/03/2021 End: 11-01-2021 Hemoglobin A1c/Hemoglobin.total in Blood [facility] Phone: Comment on above: 1 Occurrences starting 11/01/2021 until 11/01/2021 Oxygen therapy [[facility]] Initiate Oxygen Therapy Protocol Respiratory Care Routine Daily until discontinued starting 04/03/2021 [facility] Phone: Comment on above: Daily until discontinued starting 2021 End: 04-03-2021 Protime-INR Protime-INR Lab STAT One Garry e for 1 Occurrences starting 04/03/2021 until 04/03/2021 [employer] Work Phone: Comment on above: One Time for 1 Occurrences starting 06/2021 until 04/03/2021 Surgical Pathology Surgical Path ology Lab Routine Release Upon Ordering for 1 Occurrences starting 04/03/2021 [employer] Phone: Comment on above: Release Upon Ordering for 1 Occurrences starting 04/03/2021 End: 04-03-2021 Urine Urine Lab STAT One Time for 1 Occurrences starting 04/03/2021 until 04/03/2021 [employer] Phone: Comment on above: One Time for 1 Occurrences starting 06/2021 until 04/03/2021 Immunizations Immunization Date Immunization Notes Care Provider Abisai james 01-31-2021 Influenza, injectabl e, Madin Poppy Canine Kidney, preservative free, quadrivalent Watson Ca MD Work Phone: [employer] Work Phone: 10-31-2020 zoster recombinant adjuvanted vaccine (SHINGRIX) 50 MCG/0.5ML SUSR injection Watson Ca MD Work Phone: [employer] Work Phone: 12-30-2019 influenza virus vacc ine, unspecified formulation Radha Might SLEEVE SEPARATOR - AUDIOLOGY DIRECTOR Work Phone: [employer] 01-14-2019 influenza, injectabl e, quadrivalent, preservative free Radha Might [employer]- [place] 07-15-2018 pneumococcal polysaccharide vaccine, 23 valent Radha Might [employer] 01-19-2009 influenza virus vacc ine, whole virus Radha Might [employer] Payers Date Payer Category Payer Medicare MEDICARE MEDICAR E PART B [id number] 2023-[place] [address] [place] [place] [address] Medicare [id number] 2023 Medicare [id number] 2020 Unknown [id number] 2018 Unknown [employer] M [employer] AYAD - EXCHANGE xxxxxxxxxxxx 2018-Present [phone] [address] [place] [address] xxxxxxxxxxxx [id number] 2017 Unknown 2017 Unknown [id number] 1958 Unknown [id number] 1958 Unknown [id number] 1958 Unknown [id number] 1958 Unknown [id number] 1958 Unknown [id number] Social History Date Type Detail Facility Start: 01-14-2019 End: 05-12-2023 Tobacco smoking status NHIS Former smoker [facility] End: 03-31-2006 History of tobacco use [place]oker [place] Start: 01-14-2019 End: 05-12-2023 Alcohol intake Current drinker of alcohol (finding) [place] Start: 1960 Sex Assigned At Not on file M [place] Start: 01-13-2020 End: 05-12-2023 Cigarettes smoked current (pack per day) - Reported [place] Start: 09-22-2019 End: 01-13-2020 Tobacco use and exposure Never used [place] Start: 07-15-2018 End: 05-12-2023 Alcohol intake Yes [place] Start: 10-31-2020 History SDOH Financial 5 [employer] Phone: Start: 10-31-2020 History SDOH Food Worry 1 [employer] Phone: Exposure to SARS-CoV -2 (event) Not sure [employer] Phone: End: 03-31-2006 History of tobacco use Cigarette Smoker [facility] [employer] Phone: Start: 05-11-2023 Alcohol Comment caffeine 1-2 c ups per day [facility] Procedure Code Equipment Code Equipment Origin al Text Equipment Identifier Dates Test daily as directed(One Touch or whichever is covered by pt's insurance) DX: E11.8 [id number] Start: 05-28-2018 Use as directed [id number] Start: 03-04-2016 Use daily as directed [id number] Sta rt: 05-29-2018 1 each by Does n ot apply route 2 times daily [id number] Start: 01-31-2021 Test 1 times a d ay & as needed for symptoms of irregular blood glucose. Dispense sufficient amount for indicated testing frequency plus additional to accommodate PRN testing needs. [id number] Start: 04-09-2021 Test daily as directed(One Touch or whichever is covered by pt's insurance) DX: E11.8 [id number] Start: 04-05-2021 History of Present illness Narrative 05-12-2023 Jillian Russell RN LABOR AND DELIVERY - 05/12/2023 9:00 AM EST Note Date & Type Note Facility 05-12-2023 History of Presen t illness Narrative Subjective Patient ID: Livan Khan is a 63 y.o. male. Right knee: He went to prehab in 2020 for possible right knee replacement. Last depo medrol injection (12/11/20). He notes he was measured for a medial silk opener and was not approved along with the gel injection his insurance would not approve it. He notes his A1C is much better controlled at this point. He notes if he were to walk a football field he could go 50 yards then have to take a rest. Notes occasionally with flex of the knee makes a finger snapping feeling. Right knee pain 2019? and gradually getting worse. Pain at rest 0/10, with activities 5/10, Taking TYL ES prn for pain. There is pain medially, worse with prolonged walking and standing. + wake at HS at times There is swelling that is constant There is locking and catching that is occasional There is a giving way sensation that occurs occasionally. There is stiffness and loss of motion Associated symptoms limping . Prior treatment(s) included; taking tylenol as needed, rest, ice, heat, arthritis creams, tried OTC knee sleeve, mobic, XR [facility] 11/28/20, unable to take NSAIDs per PCP, depo medrol inj 12/11/20, XR [facility] 05/12/23, aspercreme arthritis Objective Ortho Exam Knee Musculoskeletal Exam Gait Limp: right Inspection Right Erythema: none Effusion: none Edema: none Ecchymosis: none Palpation Right Crepitus: patellofemoral Tenderness: present Medial joint line: moderate Range of Motion Right Active extension: 0 Active flexion: 120 Strength Right Extension: 4/5. Flexion: 4/5. XR knee 1 or 2 views right Imaging Result: May 12, 2023 x-rays AP weight-bearing bilateral knees and lateral of the Right knee demonstrate [id number] in the medial compartment of the left knee with subchondral sclerosis marginal osteophytes and varus alignment. No fractures noted. Impression: Advanced osteoarthritis right knee [place] Crow D.O. Assessment/Plan Encounter Diagnoses: ICD-10-CM 1. Right knee pain, unspecified chronicity M25.561 Hemoglobin A1c XR knee 1 or 2 views right Hemoglobin A1c 2. Arthritis of right knee M17.11 He notes he is leaning towards surgery will have him f/U with dr. Crow, he has a f/U with his pcp on Friday, will order an A1C encase his pcp does not order an A1C. documented in this encounter [facility] Evaluation note Note Date & Type Note Facility Evaluation note Diagnosis Type 2 diabetes mellitus with complication, without long-term current use of insulin (HCC) documented in this encounter [employer] Phone: Evaluation note Note Date & Type Note Facility Evaluation note Diagnosis Positive FIT (fecal immunochemical test)- Primary documented in this encounter [employer] Phone: Evaluation note Note Date & Type Note Facility Evaluation note Diagnosis Type 2 diabetes mellitus with complication, without long-term current use of insulin (HCC) documented in this encounter [facility] [employer] Phone: Evaluation note Note Date & Type Note Facility Evaluation note Diagnosis Right knee pain, unspecified chronicity- Primary Arthritis of right knee documented in this encounter [facility] Discharge instructions Instructions Note Date & Type Note Facility Hospital Discharge instructions Annabel Galindo RN - 04/03/2021 SAME DAY SURGERY DISCHARGE INSTRUCTIONS 1. Do not drive or operate hazardous machinery for 24 hours. 2. Do not make important personal or business decisions for 24 hours. 3. Do not drink alcoholic beverages for 24 hours. 4. Do not smoke tobacco products for 24 hours. 5. Eat light foods (Jell-O, soups, etc....) and drink plenty of fluids (water, Sprite, etc...) up to 8 glasses per day, as you can tolerate. 6. Limit your activities for 24 hours. Do not engage in heavy work until your surgeon gives you permission. 7. Call your surgeon for any questions regarding your surgery. COLONOSCOPY DISCHARGE INSTRUCTIONS: It's normal to have a feeling of fullness or mild cramping in your abdomen afterwards due to air that is put into your bowel during the procedure. Mild activities such as walking will help you pass the air. You may resume your regular diet. ENDOSCOPY DISCHARGE INSTRUCTIONS: You may have a mild sore throat; this should get better over the next day or two. Sipping warm liquids, a salt-water gargle or throat lozenges may be used. You may have some belching or a feeling of fullness in your abdomen. This is from air that was put into your stomach during the procedure. This should pass in a few hours. May resume your regular diet. You will receive a letter or phone call with your test results in 2 weeks. If you have not received a letter or a phone call in 2 weeks please call the office for your results. CALL THE DOCTOR IF YOU HAVE: Chest pain or trouble breathing. A hoarse voice or trouble swallowing Bleeding, vomiting or spitting up of blood that is more than a few streaks or red or black stools A fever above 101F or if you have chills Pain that is worse or different than any pain you had before the procedure Nausea or vomiting that lasts for more than 2 hours. If symptoms are to severe call 911 or go to the nearest Emergency Room. documented in this encounter [employer] Phone: Reason for visit Narrative Auth/Cert Note Date & Type Note Facility Reason for visit Narrative Specialty Diagnoses / Procedures Referred By Contac t Referred To Contact Diagnoses Positive FIT (fecal immunochemical test) POSITIVE FIT Procedures MT COLON CA SCRN NOT HI RSK IND MT ESOPHAGOGASTRODUODENOSCOPY TRANSORAL DIAGNOSTIC MT COLONOSCOPY FLX DX W/COLLJ SPEC WHEN PFRMD COLORECTAL CANCER SCREENING, NOT HIGH RISK EGD ESOPHAGOGASTRODUODENOSCOPY Watson Ca MD [address] [place] [address] [employer] [address] [place] [address] Referral ID Status Reason Start Date Expiration Date Visits Re quested Visits Authorized [id number] 1 1 [employer] Phone: Summary Purpose Family History No Family History Records FoundNo Family History Records FoundNo Family History Records FoundNo Family History Records FoundNo Family History Records Found Advance Directives No Advanced Directives Records FoundDocuments on File Type Date Recorded Patient Maintenance Services Dispatcher Expl anation Advance Directives and Living Will Power of Cloth Reeler Documents on File Type Date Recorded Patient Maintenance Services Dispatcher Expl anation ACP-Advance Directive ACP-Power of Cloth Reeler Documents on File Type Date Recorded Patient Maintenance Services Dispatcher Expl anation ACP-Advance Directive ACP-Power of Cloth Reeler Latest Code Status on File Code Status Date Activated Date Inactivated Comments Full Code 04/03/2021 9:28 AM Full Code 04/03/2021 8:11 AM 04/03/2021 9:28 AM Healthcare Agents on File Name Relationship Healthcare Agent [facility] amada Communication Halina Hernandez Other Primary Decision Maker Latest Code Status on File Code Status Date Activated Date Inactivated Comments Full Code 04/03/2021 9:28 AM 04/03/2021 12:03 PM Full Code 04/03/2021 8:11 AM 04/03/2021 9:28 AM Healthcare Agents on File Name Relationship Healthcare Agent [employer] Communication Halina Hernandez Other Primary Decision Maker Assessments Diagnosis Dyslipidemia Other and unspecified hyperlipidemia Type 2 diabetes mellitus with complication, without long-term current use of insulin (HCC) Diagnosis Viral gastroenteritis Intestinal infection due to other organism, not elsewhere classified Diagnosis Type 2 diabetes mellitus with complication, without long-term current use of insulin (HCC) Additional Source Comments (unrecognized sect ion and content) No Status Records FoundNo Status Records FoundNo Status Records FoundNo Status Records FoundNo Status Records Found INFORMATION SOURCE (unrecogn ized section and content) DATE CREATED AUTHOR 09/18/2017 [facility] DATE CREATED AUTHOR AUTHOR'S ORGANIZ ATION 09/18/2017 [facility] DATE CREATED AUTHOR AUTHOR'S ORGANIZ ATION 03/22/2021 [facility] DATE CREATED AUTHOR AUTHOR'S ORGANIZ ATION 11/07/2022 [facility] DATE CREATED AUTHOR AUTHOR'S ORGANIZ ATION 05/27/2023 [facility] EPIC Scheduled Active and Recently Administ ered Medications (unrecognized section and content) Medication Order 04/01/2021 04/02/2021 04/03/2021 sodium chloride flush 0.9 % injection 10 mL 10 mL, IntraVENous, EVERY 12 HOURS SCHEDULED (2 times per day), First dose on Fri04/03/21 at 0945, Post-op 0945 (Due)2100 (Due) sodium chloride flush 0.9 % injection 5-40 mL 5-40 mL, IntraVENous, EVERY 12 HOURS SCHEDULED (2 times per day), First dose on Fri04/03/21 at 0900, For Line Patency: Peripheral IV = 5 mL; Midline or Central Line = 10 mL/lumen. If following IV push medication, administer flush at same rate as the IV push. Flush volume is determined by type of infusion therapy being given. For non-viscous solutions use: Peripheral IV = 5 mL Midline or Central Line = 10 mL/lumen For viscous solutions (i.e. blood components, parenteral nutrition, contrast media, or after obtaining blood sample) use: Peripheral IV = 10 mL Midline or Central Line = 20 mL/lumen, Pre-procedure(GI) 0900 (Due)2100 (Due) Continuous Medication Order 04/01/2021 04/02/2021 04/03/2021 lactated ringers infusion IntraVENous, at 100 mL/hr, CONTINUOUS, Starting on Fri04/03/21 at 0830, Pre-op (day of surgery) 0830 (Due) lactated ringers infusion IntraVENous, at 125 mL/hr, CONTINUOUS, Starting on Fri04/03/21 at 0830, Pre-procedure(GI) 0833 (New Bag - Prov ider: Mae Ackerman RN)0950 (Stopped - Provider: Annabel Galindo RN) lactated ringers infusion IntraVENous, at 125 mL/hr, CONTINUOUS, Starting on Fri04/03/21 at 0945, Post-op 0945 (Due) PRN Medication Order 04/01/2021 04/02/2021 04/03/2021 0.9 % sodium chloride infusion 25 mL, IntraVENous, at 100 mL/hr, PRN, If patient receiving piggyback infusions without ordered maintenance IV fluids or with frequent/long duration piggyback infusions, Starting on Fri04/03/21 at 0800, Administer at the same rate as the piggyback being infused., Pre-procedure(GI) 0.9 % sodium chloride infusion 25 mL, IntraVENous, at 100 mL/hr, PRN, If patient receiving piggyback infusions without ordered maintenance IV fluids or with frequent/long duration piggyback infusions, Starting on Fri04/03/21 at 0928, Administer at the same rate as the piggyback being infused., Post-op sodium chloride flush 0.9 % injection 10 mL 10 mL, IntraVENous, PRN, Line Care, Starting on Fri04/03/21 at 0928, After every IV line use, Post-op sodium chloride flush 0.9 % injection 5-40 mL 5-40 mL, IntraVENous, PRN, Line Care, After every IV line use, Starting on Fri04/03/21 at 0800, For Line Patency: Peripheral IV = 5 mL; Midline or Central Line = 10 mL/lumen. If following IV push medication, administer flush at same rate as the IV push. Flush volume is determined by type of infusion therapy being given. For non-viscous solutions use: Peripheral IV = 5 mL Midline or Central Line = 10 mL/lumen For viscous solutions (i.e. blood components, parenteral nutrition, contrast media, or after obtaining blood sample) use: Peripheral IV = 10 mL Midline or Central Line = 20 mL/lumen, Pre-procedure(GI) Care Teams (unrecognized sec tion and content) [employer] Laboratory Technician Relationship Specialty Start Date End Date Radha Montgomery APRN AUDIOLOGY DIRECTOR PCP - General Family Nurse Practitioner 01/19/18 [employer] Laboratory Technician Relationship Specialty Start Date End Date Radha Montgomery APRN YAQUELIN PCP - General Family Nurse Practitioner 01/19/18 [employer] Laboratory Technician Relationship Specialty Start Date End Date Radha Montgomery MD [address] [place] [id number] Referring Physician Family Medicine 05/12/23 Agriculture Laboratory Technician Relationship Specialty Start Date End Date Radha Montgomery MD [address] [place] [id number] Referring Physician Family Medicine 05/12/23 FOR RECORDS PERTAINING TO PATIENTS WHO ARE OR HAVE BEEN ENROLLED IN A CHEMICAL DEPENDENCY/SUBSTANCEABUSE PROGRAM, SOME INFORMATION MAY BE OMITTED. This clinical summary was aggregated from multiple sources. Caution should be exercised in using it in the provision of clinical care. This summary normalizes information from multiple sources, and as a consequence, information in this document may materially change the coding, format and clinical context of patient data. In addition, data may be omitted in some cases. CLINICAL DECISIONS SHOULD BE BASED ON THE PRIMARY CLINICAL RECORDS. [facility] [employer] provides no warranty or guarantee of the accuracy or completeness of information in this document.
--- NOTE | 2023-07-07 10:01 | ED.BACK1 ---
HPI HPI - Back Pain/Injury General Chief Complaint: Back Pain/Injury Stated Complaint: BACK PAIN Time Seen by Provider: 07/07/23 09:50 Source: patient Mode of arrival: walk-in Limitations: no limitations History of Present Illness HPI Narrative: About 2 weeks ago the patient developed low back pain - uncertain of cause but denied any fall, trauma. Patient does a lot of heavy lifting at work but did not recall a particular event that caused the pain. No relief with his meloxicam or OTC tylenol. He has not been evaluated anywhere else or discussed this with his PCP. No bowel or bladder dysfunction. no weakness, paralysis or sensory changes to the LEs. Related Data Previous Rx's ?Medication ?Instructions ?Recorded methocarbamol 750 mg tablet 750 mg PO Q6H PRN pain #30 tabs 07/07/23 nabumetone 750 mg tablet 750 mg PO BID PRN pain #14 tabs 07/07/23 Allergies Allergy/AdvReac Type Severity Reaction Status Date / Time No Known Drug Allergies Allergy Verified 07/07/23 09:46 Opioid HPI Opioid Management Most Recent Opioid Data: Last Pain Scale 8 07/07/23 09:53 Exam Narrative Exam Narrative: afebrile General: Alert, no acute distress, patient resting comfortably Skin: warm, intact, no pallor noted Head: Normocephalic, atraumatic Respiratory: No acute distress Abdomen: Normal bowel sounds, soft, nontender, no masses detected. No rebound, guarding, or rigidity noted. Back: inspection of the back shows no obvious deformity, no swelling, no ecchymosis, contusion, abrasion, swelling, erythema, fluctuance or induration. Tenderness noted throughout the lumbar and paralumbar soft tissue, left worse than right. Straight leg raise on left is negative. Straight leg raise on right is positive. No CVA tenderness noted bilaterally. Musculoskeletal: Normal 5/5 strength at ankles with dorsiflexion and plantar flexion. Patient is able to ambulate. Normal sensation noted to both lower extremities. Neurological: AAOx4, normal sensory and motor observed. L5-S1 reflexes intact symmetrically. DTR 2+ at patellar bilaterally. Psychiatric: Cooperative and interactive. Constitutional Vital Signs, click to edit/add: Last Vital Signs Temp 98.3 F 07/07/23 09:46 Pulse 88 07/07/23 09:46 Resp 18 07/07/23 09:46 BP 179/94 H 07/07/23 09:46 Pulse Ox 97 07/07/23 09:46 O2 Del Method Room Air 07/07/23 09:46 Course Vital Signs Vital signs: Vital Signs Temperature 98.3 F 07/07/23 09:46 Pulse Rate 88 07/07/23 09:46 Respiratory Rate 18 07/07/23 09:46 Blood Pressure 179/94 H 07/07/23 09:46 Pulse Oximetry 97 07/07/23 09:46 Oxygen Delivery Method Room Air 07/07/23 09:46 Temperature 98.3 F 07/07/23 09:46 Pulse Rate 88 07/07/23 09:46 Respiratory Rate 18 07/07/23 09:46 Blood Pressure 179/94 H 07/07/23 09:46 Pulse Oximetry 97 07/07/23 09:46 Oxygen Delivery Method Room Air 07/07/23 09:46 MDM - Back Pain/Injury MDM Narrative Medical decision making narrative: No neurological deficit to suggest acute cauda equina syndrome or other neurosurgical emergency. No findings to suggest spinal abscess. No trauma or fall to necessitate imaging at this time. The patient received IM injections of Solu-Medrol and Toradol. He was instructed to stop his meloxicam use and was discharged with prescriptions for Relafen and Robaxin. He was instructed to see his primary care physician for follow-up. ED return if he worsens. Discharge Plan Discharge Stand Alone Forms: Portal Instructions Chief Complaint: Back Pain/Injury Clinical Impression: Strain of lumbar region Patient Disposition: Home, Self-Care Time of Disposition Decision: 10:06 Prescriptions / Home Meds: New nabumetone 750 mg tablet 750 mg PO BID PRN (Reason: pain) Qty: 14 0RF methocarbamol 750 mg tablet 750 mg PO Q6H PRN (Reason: pain) Qty: 30 0RF Print Language: [place] Instructions: Low Back Strain (ED), Lower Back Exercises (ED) Referrals: Physician,Non-Staff, MD [Primary Care Provider] - 1 week
[2023-07-07] MEDS: METHYLPREDNISOLONE SOD SUCC PF 125 MG/2 ML VIAL IM (10:08)
[2023-07-07] MEDS: KETOROLAC TROMETHAMINE 60 MG/2 ML VIAL IM (10:09)
== END 2023-07-07 10:19 | disposition home or self-care (01) ==
PROVIDERS: Emergency Provider Emergency Medicine
DX: S39.012A Strain of muscle, fascia and tendon of lower back, initial encounter (principal); X50.0XXA Overexertion from strenuous movement or load, initial encounter
CPT/HCPCS: 96372; 99284; J2919